=== PATIENT | male | born 1945 | race Caucasian/White ===

== ENCOUNTER 2020-02-07 21:29 | Emergency (ER) | payer OTHER, SELFPAY ==
[~2020-02-07] VITALS: Ht 167.6 cm; Wt 63.5 kg
--- NOTE | 2020-02-07 21:42 | NUR ---
PT DESTIYN BLS. TAKEN TO BED 2
[2020-02-07 21:55] VITALS: BP 106/62
--- NOTE | 2020-02-07 22:04 | NUR ---
ATTEMPTED TO CALL [facility] X 2. NO ANSWER.
--- NOTE | 2020-02-07 22:15 | NUR ---
74 Y/O MALE BIB ALS FROM [facility] FOR ALOC. A&O X2. PER DAUGHTER PT WAS BROUGHT INTO ER DUE TO COVID EXPOSURE FROM ROOMMATES AT [facility]. 0/10 PAIN. PT IS CONFUSED, THIS IS BASELINE S/P FALL 12/02/19. PT HAD SURGERY FOR INTERNAL HEAD BLEED, AND BRAIN SWELLING PER DAUGHTER. PER DAUGHTER PT HAS BEEN AT [facility] SINCE 01/19/20 AND TESTED FOR COVID, WITH A NEG RESULT 02/04/20. ON 02/02/20 DAUGHTER STATED PT IS ROOMED WITH COVID POSITIVE PTS. DENIES SOB, O2: 96% ON ROOM AIR, COUGH, NAUSEA, VOMITING, DIARRHEA, AFEBRILE. SIDE RAIL X2, BED IN LOW POSITION, WILL CONTINUE TO MONITOR. NKDA PMH: ENLARGED PROSTATE, HEN, DEPRESSION, INSOMNIA
--- NOTE | 2020-02-07 22:18 | NUR ---
5 CALL ATTEMPTS HAVE BEEN MADE TO SPEAK TO A NURSE REGARDING PT'S PMH, AND TO GET MORE INFORMATION, AND REASON FOR VISIT. Addendum: 02/07/20 at 2221 by [employer] THE FACILITIES PHONE RINGS, AND THEN THERE IS A BUSY SIGNAL.
--- NOTE | 2020-02-07 23:23 | NUR ---
Dr. Duarte examining patient.
[2020-02-07 23:50] LABS: BASOPHILS % (AUTO) 0.4 % (0.0-2.0); EOSINOPHILS % (AUTO) 0.7 % (0.0-4.0); HEMATOCRIT 35.8 % (36-52); HEMOGLOBIN 12.2 g/dL (12.0-18.0); LYMPHOCYTES % (AUTO) 22.7 % (20.5-51.1); MEAN CORPUSCULAR HEMOGLOBIN 33 pg (27-31); MEAN CORPUSCULAR HGB CONC 34 g/dL (33-37); MEAN CORPUSCULAR VOLUME 96.1 fL (80-94); MONOCYTES # (AUTO) 0.4 K/uL (0.8-1.0); MONOCYTES % (AUTO) 8.9 % (1.7-9.3); NEUTROPHILS % (AUTO) 67.3 % (42.2-75.2); PLATELET COUNT (AUTO) 226 K/uL (140-450); RED BLOOD CELL COUNT(AUTO) 3.73 MIL/uL (4.20-6.10); WHITE BLOOD COUNT (AUTO) 4.5 K/uL (4.8-10.8)
[2020-02-08 00:03] LABS: APPEARANCE,URINE HAZY (CLEAR); BILIRUBIN,URINE 1+ (NEGATIVE); BLOOD, URINE 2+ (NEGATIVE); COLOR,URINE DARK YELLOW (YELLOW); LEUKOCYTE ESTERASE ,URINE 2+ (NEGATIVE); NITRITE, URINE NEGATIVE (NEGATIVE); UGLUCOSE NEGATIVE (NEGATIVE)
[2020-02-08 00:10] LABS: ACETAMINOPHEN 4.3 ug/ml (10-30); ALBUMIN 3.4 g/dL (3.4-5.0); ANION GAP 15.6 (8-16); ASPARTATE AMINOTRANSFERASE 50 U/L (15-37); CARBON DIOXIDE 24.2 mmol/L (21-32); CHLORIDE 100 mmol/L (98-107); GLUCOSE 93 mg/dL (74-106); POTASSIUM 3.8 mmol/L (3.5-5.1); SODIUM SERUM 136 mmol/L (136-145); TOTAL BILIRUBIN 0.4 mg/dL (0.0-1.0); UREA NITROGEN, BLOOD 21 mg/dL (7-18)
[2020-02-08 00:13] LABS: BARBITURATE, URINE NEGATIVE ng/ml (NEG <=200); BENZODIAZEPINE, URINE POSITIVE ng/mL (NEG <=200); CANNABINOID, URINE NEGATIVE ng/mL (NEG <=50); COCAINE, URINE NEGATIVE ng/mL (NEG <=300); OPIATE, URINE NEGATIVE ng/mL (NEG <=2000); PHENCYCLIDINE SCREEN,URINE NEGATIVE ng/mL (NEG <=25)
--- NOTE | 2020-02-08 00:15 | NUR ---
EKG PERFORMED AT BEDSIDE
[2020-02-08 00:22] LABS: SALICYLATE < 2.8 mg/dL (2.8-20.0)
[2020-02-08 00:26] LABS: RBC,URINE 11-20 (MOD) /HPF (0-5); WBC,URINE 60-80 /HPF (0-5)
--- NOTE | 2020-02-08 00:32 | NUR ---
PT REQUESTING FOOD, SANCHEZ LEBLANC NOTIFIED, AND CLEARED PT FOR FOOD. MAINTENANCE TEAM LEADER CALLED, WILL BRING SANDWICH FOR PT.
--- NOTE | 2020-02-08 00:40 | NUR ---
PT LAYING IN BED EATING TUNA SANDWICH. SIDE RAIL X2, BED IN LOW POSITION WILL CONTINUE TO MONITOR.
[2020-02-08] MEDS ORDERED: KETOROLAC 15 MG/ML VIAL IVP ONE (01:55)
[2020-02-08] MEDS ORDERED: NACL 0.9% 500 ML IV ONE (01:55)
[2020-02-08] MEDS ORDERED: cefTRIAXone 2,000 MG in DEXTROSE 5% 100 ML IV ONE (01:55)
[2020-02-08] MEDS ORDERED: cefTRIAXone 2,000 MG VIAL ONE (01:57)
[2020-02-08] MEDS ORDERED: HALOPERIDOL IM 5 MG/ML VIAL IM ONE (03:30)
--- NOTE | 2020-02-08 03:42 | NUR ---
SPOKE WITH DAUGHTER, MARCIN, REGARDING RIDE HOME FOR PATIENT. MARCIN STATES "I DONT WANT TO GET HIM NOW BECAUSE I DONT EVEN WANT HIM GOING BACK TO THAT FACILITY." MARCIN STATES THAT SHE WANTS TO SPEAK WITH CASE MANAGEMENT AT [facility] AND WILL CALL US WITH AN UPDATE IN THE MORNING. INFORMED MARCIN WE WILL BE SETTING UP TRANSPORTATION TO [facility] VIA [facility] AND WILL BE WAITING FOR HER TO CALL US BACK.
--- NOTE | 2020-02-08 04:12 | NUR ---
PT REMAINS AGITATED AND ATTEMPTINGTO PULL LINES AND GET OUT OF BED. DR LEBLANC NOTIFIFED. EMMAR FOR [facility] RECEIVED.
[2020-02-08] MEDS ORDERED: LORazepam 2 MG/ML VIAL ONE ×2 (04:14→04:19)
[2020-02-08] MEDS ORDERED: LORazepam 2 MG/ML VIAL IVP ONE (04:45)
--- NOTE | 2020-02-08 05:48 | NUR ---
PT CURRENTLY SLEEPING, VSS, R/R EQUAL, AND UNLABORED. SIDE RAIL X2, BED IN LOW POSITION, WILL CONTINUE TO MONITOR.
--- NOTE | 2020-02-08 06:50 | NUR ---
PT SLEEPING IN BED. VSS, R/R EQUAL, AND UNLABORED. SIDE RAIL X2, BED IN LOW POSITION. WILL CONTINUE TO MONITOR.
--- NOTE | 2020-02-08 06:50 | NUR ---
SINCE PLACEMENT OF THE COUDE CATHETER NO URINE IS PRESENT IN THE URINARY DRAINAGE BAG. BLADDER SCAN SHOWS 136ML OF URINE PRESENT IN THE BLADDER. ULTRASOUND SHOW PROPER PLACEMENT OF THE BALLOON THE BLADDER. SANCHEZ LEBLANC MADE AWARE.
--- NOTE | 2020-02-08 07:15 | NUR ---
Pt report given to MARIELY LUKE. Transfer of care at this time.
--- NOTE | 2020-02-08 07:21 | NUR ---
PT SLEEPING AT THIS TIME. NO SIGNS OF DISTRESS. VS STABLE.
--- NOTE | 2020-02-08 08:13 | NUR ---
NEW APPROX ETA IS 11-12 TODAY
--- NOTE | 2020-02-08 09:14 | NUR ---
CALLED [facility] TO INFORM THAT PT WILL BE RETURNING TO FACILITY. THEY STATE THAT FAMILY DOES NOT WANT PT TO RETURN TO FACILITY. CALLED PTS FAMILY INFORMED THAT PT IS STABLE FOR DISCHARGE AND WILL BE RETURNING TO FACILITY AND THAT IF FAMILY WOULD LIKE TO SWITCH CARE FACILITIES, THEY WOULD NEED TO GO THROUGH [facility], NOT THE ER.
--- NOTE | 2020-02-08 09:58 | NUR ---
VS STABLE, PENDING DISCHARGE
[2020-02-08 10:20] VITALS: BP 114/69
--- NOTE | 2020-02-08 10:20 | NUR ---
Patient discharged with v/s stable. Written and verbal after care instructions given and explained REGARDIHNG FEVER AND UTI. Patient alert. All questions addressed prior to discharge. ID band removed. Rx of CEFPODOXIME PROXETIL given. FAMILY INFORMED THAT PT HAS COVID PENDING AND IF RESULT IS POSITIVE THEY WILL BE INFORMED WITH AP PHONE CALL [facility] PT BACK TO [facility]
--- NOTE | 2020-02-08 11:00 | NUR ---
RECIEVED CALL FROM YANICK SCHUSTER FROM [facility] FOR REPORT
--- NOTE | 2020-02-08 19:04 | NUR ---
RECEIVED REPORT OF POSITIVE COVID RESULT FROM LAB. FACE SHEET PLACED IN INFECTION CONTROL & INFECTION CONTROL TO F/U WITH PATIENT.
== END 2020-02-08 10:20 ==
LOC: EEVIPCON 21:29 → MED 21:29
DX: N30.00 Acute cystitis without hematuria (principal); E16.2 Hypoglycemia, unspecified; D72.819 Decreased white blood cell count, unspecified; F41.9 Anxiety disorder, unspecified; F03.90 Unspecified dementia, unspecified severity, without behavioral disturbance, psychotic disturbance, mood disturbance, and anxiety; R05 Cough; R50.81 Fever presenting with conditions classified elsewhere; R74.0 Nonspecific elevation of levels of transaminase and lactic acid dehydrogenase [LDH]; Z20.828 Contact with and (suspected) exposure to other viral communicable diseases; G47.00 Insomnia, unspecified; Z98.890 Other specified postprocedural states; Z86.79 Personal history of other diseases of the circulatory system
CPT/HCPCS: 36415; 70450; 71045; 80053; 80305; 81001; 82550; 84484; 85025; 87086; 87186; 93005; 96365; 96375; 99285; G0480; G0482; J0696; J1630; J1885; J2060; J7030; Q0092; U0003

== ENCOUNTER 2020-02-24 05:25 | Inpatient (IN) | payer OTHER, SELFPAY ==
[2020-02-24] VITALS (7 sets, daily range): BP systolic 89–132; BP diastolic 53–80
[~2020-02-24] VITALS: Ht 182.9 cm; Wt 81.6 kg
[2020-02-24] MEDS ORDERED: ROCURONIUM 50 MG/5 ML VIAL IV ONE (05:35)
[2020-02-24] MEDS ORDERED: SUCCINYLCHOLINE CHLORIDE 200 MG/10 ML VIAL IVP ONE (05:40)
[2020-02-24] MEDS ORDERED: INTUBATION KIT MC ONE (05:47)
[2020-02-24] MEDS: PROPOFOL 1000 MG/100 ML PREMIX 100 ML IV ONE ×2 (05:50→06:19)
[2020-02-24 06:29] LABS: HEMATOCRIT 32.7 % (36-52); HEMOGLOBIN 10.7 g/dL (12.0-18.0); MEAN CORPUSCULAR HEMOGLOBIN 31 pg (27-31); MEAN CORPUSCULAR HGB CONC 33 g/dL (33-37); MEAN CORPUSCULAR VOLUME 95.9 fL (80-94); PLATELET COUNT (AUTO) 242 K/uL (140-450); RED BLOOD CELL COUNT(AUTO) 3.41 MIL/uL (4.20-6.10); WHITE BLOOD COUNT (AUTO) 21.2 K/uL (4.8-10.8)
[2020-02-24] MEDS ORDERED: PANTOPRAZOLE 40 MG INJ VIAL IVP ONE (06:55)
[2020-02-24 07:00] LABS: ALBUMIN 1.9 g/dL (3.4-5.0); ANION GAP 15.6 (8-16); ASPARTATE AMINOTRANSFERASE 100 U/L (15-37); CARBON DIOXIDE 24.6 mmol/L (21-32); CHLORIDE 105 mmol/L (98-107); CREATININE 0.8 mg/dL (0.6-1.3); GLUCOSE 95 mg/dL (74-106); POTASSIUM 3.2 mmol/L (3.5-5.1); SODIUM SERUM 142 mmol/L (136-145); UREA NITROGEN, BLOOD 8 mg/dL (7-18)
[2020-02-24 07:05] LABS: LYMPHOCYTES % (MANUAL) 3 % (20-46); MONOCYTES % (MANUAL) 5 % (5-12)
[2020-02-24] MEDS ORDERED: NACL 0.9% 1,000 ML IV ONE (07:30)
[2020-02-24] MEDS ORDERED: AZITHROMYCIN 500 MG in DEXTROSE 5% 250 ML IV SCH ×2 (07:30→09:00)
[2020-02-24] MEDS ORDERED: AZITHROMYCIN 500 MG INJ VIAL IV ONE (07:35)
[2020-02-24 07:39] LABS: RSV NEGATIVE (NEGATIVE)
[2020-02-24] MEDS ORDERED: ZINC220C28 PO (08:12)
[2020-02-24] MEDS ORDERED: AMLO10TA PO (08:12)
[2020-02-24] MEDS ORDERED: VITB1I PO (08:12)
[2020-02-24] MEDS ORDERED: CLON-527 PO (08:12)
[2020-02-24] MEDS ORDERED: MODA200T39 PO (08:12)
[2020-02-24] MEDS ORDERED: FINA5TAB1 PO (08:12)
[2020-02-24] MEDS ORDERED: ASCO-516 PO (08:12)
[2020-02-24] MEDS ORDERED: MELA5SGL PO (08:12)
[2020-02-24] MEDS ORDERED: MULT-2171 PO (08:12)
[2020-02-24] MEDS ORDERED: CIPR500P4 PO (08:12)
[2020-02-24] MEDS ORDERED: NICO1PAT16 TP (08:12)
[2020-02-24] MEDS ORDERED: VITA1TAB44 PO (08:12)
[2020-02-24] MEDS ORDERED: VOL25 TD (08:12)
[2020-02-24] MEDS ORDERED: DOCU-299 PO (08:12)
[2020-02-24] MEDS ORDERED: ACET-2619 PO (08:12)
[2020-02-24] MEDS ORDERED: METO25TE2 PO (08:12)
[2020-02-24] MEDS ORDERED: CHOL400T7 PO (08:12)
[2020-02-24] MEDS ORDERED: [UNRECOGNIZED DRUG - CODE] PO (08:12)
[2020-02-24] MEDS ORDERED: ONDANSETRON 4 MG/2 ML VIAL IVP PRN (08:15)
[2020-02-24] MEDS ORDERED: IPRATROPIUM 0.02% 0.5 MG/2.5 ML NEBU INH PRN (08:15)
[2020-02-24] MEDS ORDERED: ALBUTEROL 0.083% 2.5 MG/3 ML NEBU INH PRN (08:15)
[2020-02-24] MEDS ORDERED: PIPERACILLIN/TAZOBACTAM 3.375 GM VIAL IV ONE (08:18)
[2020-02-24] MEDS ORDERED: MAG SULF 2000 MG/WATER PREMIX 50 ML IV PRN (08:30)
[2020-02-24] MEDS ORDERED: MAGNESIUM OXIDE 400 MG TAB PO PRN (08:30)
[2020-02-24] MEDS ORDERED: diphenhydrAMINE 50 MG/ML VIAL IVP PRN (08:30)
[2020-02-24] MEDS ORDERED: POTASSIUM CHLORIDE 10 MEQ TABER PO PRN (08:30)
[2020-02-24] MEDS ORDERED: MIDAZOLAM MDV 50 MG in NACL 0.9% 40 ML IV PRN (08:30)
[2020-02-24] MEDS ORDERED: fentaNYL citrate 1 MG in NACL 0.9% 80 ML IV PRN (08:30)
[2020-02-24 08:42] LABS: C-REACTIVE PROTEIN QUANT 23.2 mg/dL (0.0-0.9)
[2020-02-24 08:46] LABS: FIBRINOGEN 280 mg/dL (200-400)
[2020-02-24 08:47] LABS: LACTATE DEHYDROGENASE 592 U/L (85-227)
[2020-02-24] MEDS ORDERED: remdesivir COMMUNICATION ORDER 1 EA MISC MC SCH (09:00)
[2020-02-24] MEDS ORDERED: LOVENOX 1MG/KG Q12H SUBQ SCH (09:00)
[2020-02-24] MEDS: PIPERACILLIN/TAZOBACTAM 3.375 GM in DEXTROSE 5% 50 ML IV SCH ×2 (09:14→21:12)
[2020-02-24] MEDS: DEXAMETHASONE 10 MG/ML VIAL IVP SCH (09:21)
[2020-02-24] MEDS: ENOXAPARIN 80 MG/0.8 ML SYR SUBQ SCH ×2 (09:24→21:12)
[2020-02-24] MEDS ORDERED: CLINICAL MONITORING MC PRN (10:05)
[2020-02-24] MEDS ORDERED: PROPOFOL 1000 MG/100 ML PREMIX 100 ML IV ONE (11:20)
[2020-02-24] MEDS: ALBUTEROL 0.083% 2.5 MG/3 ML NEBU INH SCH ×3 (11:45→19:20)
[2020-02-24] MEDS ORDERED: remdesivir 200 mg in NACL 0.9% 100 ML IV SCH (12:00)
[2020-02-24] MEDS ORDERED: DOPamine 400 MG/D5W PREMIX 250 ML IV PRN (14:05)
[2020-02-24] MEDS ORDERED: POTASSIUM CHLORIDE 20% 40 MEQ/15 ML UDC GT SCH (15:00)
[2020-02-24] MEDS ORDERED: MIDAZOLAM MDV 50 MG/10 ML VIAL IV ONE (23:40)
[2020-02-25] VITALS (9 sets, daily range): BP systolic 98–127; BP diastolic 62–83
[2020-02-25] MEDS: PIPERACILLIN/TAZOBACTAM 3.375 GM in DEXTROSE 5% 50 ML IV SCH ×3 (04:18→21:16)
[2020-02-25] MEDS: ACETAMINOPHEN 325 MG TAB PO PRN (06:41)
[2020-02-25] MEDS: ENOXAPARIN 80 MG/0.8 ML SYR SUBQ SCH ×2 (09:00→21:24)
[2020-02-25] MEDS ORDERED: cefTRIAXone 1,000 MG VIAL ONE (09:00)
[2020-02-25] MEDS: AZITHROMYCIN 500 MG in DEXTROSE 5% 250 ML IV SCH (09:00)
[2020-02-25] MEDS: ALBUTEROL 0.083% 2.5 MG/3 ML NEBU INH SCH ×5 (09:05→23:24)
[2020-02-25] MEDS: DEXAMETHASONE 10 MG/ML VIAL IVP SCH (09:34)
[2020-02-25 10:04] LABS: BASOPHILS % (AUTO) 0.1 % (0.0-2.0); EOSINOPHILS # (AUTO) 0.1 K/uL (0-0.4); EOSINOPHILS % (AUTO) 0.3 % (0.0-4.0); HEMATOCRIT 30.9 % (36-52); HEMOGLOBIN 9.9 g/dL (12.0-18.0); LYMPHOCYTES # (AUTO) 0.5 K/uL (2.0-11.5); LYMPHOCYTES % (AUTO) 2.7 % (20.5-51.1); MEAN CORPUSCULAR HEMOGLOBIN 31 pg (27-31); MEAN CORPUSCULAR HGB CONC 32 g/dL (33-37); MEAN CORPUSCULAR VOLUME 97.9 fL (80-94); MONOCYTES # (AUTO) 0.8 K/uL (0.8-1.0); MONOCYTES % (AUTO) 3.9 % (1.7-9.3); NEUTROPHILS # (AUTO) 18.8 K/uL (1.8-7.7); PLATELET COUNT (AUTO) 230 K/uL (140-450); RED BLOOD CELL COUNT(AUTO) 3.15 MIL/uL (4.20-6.10); RED CELL DISTRIBUTION WIDTH 14.8 % (11.6-13.7); WHITE BLOOD COUNT (AUTO) 20.2 K/uL (4.8-10.8)
[2020-02-25 10:24] LABS: ALBUMIN 1.5 g/dL (3.4-5.0); ANION GAP 13.3 (8-16); ASPARTATE AMINOTRANSFERASE 38 U/L (15-37); CARBON DIOXIDE 26.9 mmol/L (21-32); CHLORIDE 112 mmol/L (98-107); CREATININE 0.7 mg/dL (0.6-1.3); GLUCOSE 116 mg/dL (74-106); POTASSIUM 3.2 mmol/L (3.5-5.1); SODIUM SERUM 149 mmol/L (136-145); TOTAL BILIRUBIN 0.6 mg/dL (0.0-1.0); UREA NITROGEN, BLOOD 15 mg/dL (7-18)
[2020-02-25] MEDS: fentaNYL citrate - 50mL vial 2.5 MG in NACL 0.9% 200 ML IV PRN (10:58)
[2020-02-25] MEDS: MIDAZOLAM MDV 100 MG in NACL 0.9% 80 ML IV PRN (11:50)
[2020-02-25] MEDS ORDERED: DEXAMETHASONE 4 MG/ML VIAL IVP SCH (12:10)
[2020-02-25] MEDS: remdesivir 100 mg in NACL 0.9% 100 ML IV SCH (13:14)
[2020-02-25] MEDS ORDERED: POTASSIUM CHLORIDE 20% 40 MEQ/15 ML UDC GT SCH (16:15)
[2020-02-25] MEDS ORDERED: ACETAMINOPHEN 325 MG SUPP RC ONE (17:23)
[2020-02-25] MEDS ORDERED: remdesivir COMMUNICATION ORDER 1 EA MISC MC PRN (19:50)
[2020-02-26] VITALS (101 sets, daily range): BP systolic 80–165; BP diastolic 51–102
[2020-02-26] MEDS: ALBUTEROL 0.083% 2.5 MG/3 ML NEBU INH SCH ×3 (02:04→23:00)
[2020-02-26] MEDS: PIPERACILLIN/TAZOBACTAM 3.375 GM in DEXTROSE 5% 50 ML IV SCH ×2 (05:24→13:00)
[2020-02-26 08:20] LABS: ALBUMIN 1.5 g/dL (3.4-5.0); ANION GAP 13.6 (8-16); ASPARTATE AMINOTRANSFERASE 67 U/L (15-37); CARBON DIOXIDE 26.6 mmol/L (21-32); CHLORIDE 115 mmol/L (98-107); CREATININE 0.7 mg/dL (0.6-1.3); GLUCOSE 123 mg/dL (74-106); POTASSIUM 4.2 mmol/L (3.5-5.1); SODIUM SERUM 151 mmol/L (136-145); TOTAL BILIRUBIN 0.5 mg/dL (0.0-1.0); UREA NITROGEN, BLOOD 18 mg/dL (7-18)
[2020-02-26 08:35] LABS: BASOPHILS % (AUTO) 0.2 % (0.0-2.0); EOSINOPHILS # (AUTO) 0.1 K/uL (0-0.4); EOSINOPHILS % (AUTO) 0.2 % (0.0-4.0); HEMATOCRIT 32.1 % (36-52); HEMOGLOBIN 10.4 g/dL (12.0-18.0); LYMPHOCYTES # (AUTO) 0.7 K/uL (2.0-11.5); MEAN CORPUSCULAR HEMOGLOBIN 32 pg (27-31); MEAN CORPUSCULAR HGB CONC 33 g/dL (33-37); MONOCYTES # (AUTO) 0.7 K/uL (0.8-1.0); MONOCYTES % (AUTO) 2.7 % (1.7-9.3); NEUTROPHILS # (AUTO) 23.4 K/uL (1.8-7.7); NEUTROPHILS % (AUTO) 93.9 % (42.2-75.2); PLATELET COUNT (AUTO) 267 K/uL (140-450); RED BLOOD CELL COUNT(AUTO) 3.31 MIL/uL (4.20-6.10); WHITE BLOOD COUNT (AUTO) 24.9 K/uL (4.8-10.8)
[2020-02-26] MEDS ORDERED: CRUSHER, PILL MC ONE (08:38)
[2020-02-26] MEDS: ENOXAPARIN 80 MG/0.8 ML SYR SUBQ SCH ×2 (09:00→20:32)
[2020-02-26] MEDS: DEXAMETHASONE 10 MG/ML VIAL IVP SCH (09:06)
[2020-02-26] MEDS: ACETAMINOPHEN 325 MG TAB PO PRN (09:06)
[2020-02-26] MEDS: AZITHROMYCIN 500 MG in DEXTROSE 5% 250 ML IV SCH (09:56)
[2020-02-26] MEDS ORDERED: CLINICAL MONITORING MC PRN (10:00)
[2020-02-26] MEDS ORDERED: remdesivir 200 mg in NACL 0.9% 100 ML IV SCH (10:00)
[2020-02-26] MEDS: remdesivir 100 mg in NACL 0.9% 100 ML IV SCH (12:30)
[2020-02-26] MEDS: MIDODRINE 5 MG TAB PO SCH ×2 (12:31→19:50)
[2020-02-26] MEDS: MIDAZOLAM MDV 100 MG in NACL 0.9% 80 ML IV PRN (13:45)
[2020-02-26] MEDS: ALBUMIN HUMAN 25% 100 ML IV SCH (20:39)
[2020-02-26] MEDS: fentaNYL citrate - 50mL vial 2.5 MG in NACL 0.9% 200 ML IV PRN (20:50)
[2020-02-27] VITALS (107 sets, daily range): BP systolic 90–157; BP diastolic 51–94
[2020-02-27] MEDS: MIDODRINE 5 MG TAB PO SCH ×4 (00:36→17:58)
[2020-02-27] MEDS: ALBUTEROL 0.083% 2.5 MG/3 ML NEBU INH SCH ×5 (03:00→20:35)
[2020-02-27 06:34] LABS: BASOPHILS % (AUTO) 0.1 % (0.0-2.0); HEMATOCRIT 29.6 % (36-52); HEMOGLOBIN 9.4 g/dL (12.0-18.0); LYMPHOCYTES # (AUTO) 0.6 K/uL (2.0-11.5); LYMPHOCYTES % (AUTO) 2.7 % (20.5-51.1); MEAN CORPUSCULAR HEMOGLOBIN 31 pg (27-31); MEAN CORPUSCULAR HGB CONC 32 g/dL (33-37); MEAN CORPUSCULAR VOLUME 98.9 fL (80-94); MONOCYTES # (AUTO) 0.5 K/uL (0.8-1.0); MONOCYTES % (AUTO) 2.2 % (1.7-9.3); NEUTROPHILS # (AUTO) 21.5 K/uL (1.8-7.7); PLATELET COUNT (AUTO) 216 K/uL (140-450); RED BLOOD CELL COUNT(AUTO) 2.99 MIL/uL (4.20-6.10); RED CELL DISTRIBUTION WIDTH 15.3 % (11.6-13.7); WHITE BLOOD COUNT (AUTO) 22.6 K/uL (4.8-10.8)
[2020-02-27 06:45] LABS: ALBUMIN 1.8 g/dL (3.4-5.0); ANION GAP 13.9 (8-16); ASPARTATE AMINOTRANSFERASE 31 U/L (15-37); CARBON DIOXIDE 29.5 mmol/L (21-32); CHLORIDE 114 mmol/L (98-107); CREATININE 0.6 mg/dL (0.6-1.3); GLUCOSE 107 mg/dL (74-106); POTASSIUM 4.4 mmol/L (3.5-5.1); SODIUM SERUM 153 mmol/L (136-145); TOTAL BILIRUBIN 0.5 mg/dL (0.0-1.0); UREA NITROGEN, BLOOD 22 mg/dL (7-18)
[2020-02-27] MEDS: ENOXAPARIN 80 MG/0.8 ML SYR SUBQ SCH ×2 (09:00→21:05)
[2020-02-27] MEDS: ALBUMIN HUMAN 25% 100 ML IV SCH ×2 (09:00→21:05)
[2020-02-27] MEDS: DEXAMETHASONE 10 MG/ML VIAL IVP SCH (09:00)
[2020-02-27] MEDS ORDERED: remdesivir 100 mg in NACL 0.9% 100 ML IV SCH (10:00)
[2020-02-27] MEDS: remdesivir 100 mg in NACL 0.9% 100 ML IV SCH (12:00)
[2020-02-27] MEDS: fentaNYL citrate - 50mL vial 2.5 MG in NACL 0.9% 200 ML IV PRN (17:50)
[2020-02-27] MEDS: MIDAZOLAM MDV 50 MG in NACL 0.9% 40 ML IV PRN (17:53)
[2020-02-27] MEDS: ACETAMINOPHEN 325 MG TAB PO PRN ×2 (18:05→22:10)
[2020-02-28] VITALS (107 sets, daily range): BP systolic 99–164; BP diastolic 60–103
[2020-02-28] MEDS: ALBUTEROL 0.083% 2.5 MG/3 ML NEBU INH SCH ×7 (00:03→23:17)
[2020-02-28] MEDS: MIDODRINE 5 MG TAB PO SCH ×4 (00:28→18:00)
[2020-02-28] MEDS: ACETAMINOPHEN 325 MG TAB PO PRN ×2 (02:12→10:44)
[2020-02-28 05:38] LABS: BASOPHILS % (AUTO) 0.2 % (0.0-2.0); EOSINOPHILS # (AUTO) 0.1 K/uL (0-0.4); EOSINOPHILS % (AUTO) 0.8 % (0.0-4.0); HEMATOCRIT 28.8 % (36-52); LYMPHOCYTES # (AUTO) 0.7 K/uL (2.0-11.5); MEAN CORPUSCULAR HEMOGLOBIN 31 pg (27-31); MEAN CORPUSCULAR HGB CONC 31 g/dL (33-37); MEAN CORPUSCULAR VOLUME 99.1 fL (80-94); MONOCYTES # (AUTO) 0.3 K/uL (0.8-1.0); MONOCYTES % (AUTO) 1.8 % (1.7-9.3); NEUTROPHILS # (AUTO) 15.6 K/uL (1.8-7.7); NEUTROPHILS % (AUTO) 93.2 % (42.2-75.2); PLATELET COUNT (AUTO) 158 K/uL (140-450); RED CELL DISTRIBUTION WIDTH 15.4 % (11.6-13.7); WHITE BLOOD COUNT (AUTO) 16.7 K/uL (4.8-10.8)
[2020-02-28 06:49] LABS: ALBUMIN 2.3 g/dL (3.4-5.0); ANION GAP 6.9 (8-16); ASPARTATE AMINOTRANSFERASE 55 U/L (15-37); CARBON DIOXIDE 35.2 mmol/L (21-32); CHLORIDE 118 mmol/L (98-107); CREATININE 0.7 mg/dL (0.6-1.3); GLUCOSE 131 mg/dL (74-106); POTASSIUM 4.1 mmol/L (3.5-5.1); UREA NITROGEN, BLOOD 19 mg/dL (7-18)
[2020-02-28 08:18] LABS: SODIUM SERUM 156 mmol/L (136-145)
[2020-02-28] MEDS: DEXAMETHASONE 10 MG/ML VIAL IVP SCH (08:45)
[2020-02-28] MEDS: ENOXAPARIN 80 MG/0.8 ML SYR SUBQ SCH ×2 (08:47→21:10)
[2020-02-28] MEDS: ALBUMIN HUMAN 25% 100 ML IV SCH ×2 (09:00→21:10)
[2020-02-28] MEDS: remdesivir 100 mg in NACL 0.9% 100 ML IV SCH (11:54)
[2020-02-28] MEDS ORDERED: MAGNESIUM HYDROXIDE 2400 MG/30 ML UDC NG PRN (12:25)
[2020-02-28] MEDS: MIDAZOLAM MDV 50 MG in NACL 0.9% 40 ML IV PRN (14:30)
[2020-02-28] MEDS: fentaNYL citrate - 50mL vial 2.5 MG in NACL 0.9% 200 ML IV PRN (14:59)
[2020-02-29] VITALS (103 sets, daily range): BP systolic 102–178; BP diastolic 59–120
[2020-02-29] MEDS: MORPHINE SULFATE 2 MG/ML SYR IVP PRN (00:35)
[2020-02-29] MEDS ORDERED: MIDAZOLAM MDV 50 MG/10 ML VIAL IV ONE (05:06)
[2020-02-29] MEDS: MIDAZOLAM MDV 50 MG in NACL 0.9% 40 ML IV PRN ×2 (05:11→16:16)
[2020-02-29] MEDS: MIDODRINE 5 MG TAB PO SCH ×4 (05:12→18:39)
[2020-02-29 06:24] LABS: HEMATOCRIT 31.6 % (36-52); MEAN CORPUSCULAR HEMOGLOBIN 31 pg (27-31); MEAN CORPUSCULAR HGB CONC 32 g/dL (33-37); MEAN CORPUSCULAR VOLUME 98.2 fL (80-94); PLATELET COUNT (AUTO) 177 K/uL (140-450); RED BLOOD CELL COUNT(AUTO) 3.22 MIL/uL (4.20-6.10); RED CELL DISTRIBUTION WIDTH 15.2 % (11.6-13.7); WHITE BLOOD COUNT (AUTO) 19.3 K/uL (4.8-10.8)
[2020-02-29 06:56] LABS: ANION GAP 9.6 (8-16); ASPARTATE AMINOTRANSFERASE 38 U/L (15-37); CARBON DIOXIDE 34.1 mmol/L (21-32); CHLORIDE 117 mmol/L (98-107); CREATININE 0.6 mg/dL (0.6-1.3); GLUCOSE 170 mg/dL (74-106); POTASSIUM 3.7 mmol/L (3.5-5.1); TOTAL BILIRUBIN 0.8 mg/dL (0.0-1.0); UREA NITROGEN, BLOOD 23 mg/dL (7-18)
[2020-02-29 07:22] LABS: SODIUM SERUM 157 mmol/L (136-145)
[2020-02-29] MEDS: ALBUTEROL 0.083% 2.5 MG/3 ML NEBU INH SCH ×5 (07:35→23:29)
[2020-02-29] MEDS: NACL 0.45% 1,000 ML IV SCH ×2 (08:38→20:55)
[2020-02-29] MEDS: DEXAMETHASONE 10 MG/ML VIAL IVP SCH (09:39)
[2020-02-29] MEDS: ALBUMIN HUMAN 25% 100 ML IV SCH (09:39)
[2020-02-29] MEDS: ENOXAPARIN 80 MG/0.8 ML SYR SUBQ SCH ×2 (09:40→20:32)
[2020-02-29 10:44] LABS: LYMPHOCYTES % (MANUAL) 4 % (20-46)
[2020-02-29 10:45] LABS: BASOPHILS % (MANUAL) 0 % (0-2); EOSINOPHILS % (MANUAL) 0 % (0-4); MONOCYTES % (MANUAL) 2 % (5-12)
[2020-02-29] MEDS: fentaNYL citrate - 50mL vial 2.5 MG in NACL 0.9% 200 ML IV PRN (10:47)
[2020-02-29 15:14] LABS: D-DIMER > 5000 ng/ml (0-400)
[2020-02-29] MEDS: ACETAMINOPHEN 325 MG TAB PO PRN (21:52)
[2020-03-01] VITALS (102 sets, daily range): BP systolic 111–191; BP diastolic 64–119
[2020-03-01] MEDS: MIDODRINE 5 MG TAB PO SCH ×4 (00:42→18:00)
[2020-03-01] MEDS ORDERED: MIDAZOLAM MDV 50 MG/10 ML VIAL IV ONE (03:05)
[2020-03-01] MEDS: MIDAZOLAM MDV 50 MG in NACL 0.9% 40 ML IV PRN ×3 (03:17→18:57)
[2020-03-01] MEDS: ALBUTEROL 0.083% 2.5 MG/3 ML NEBU INH SCH ×6 (03:18→22:41)
[2020-03-01 06:20] LABS: BASOPHILS % (AUTO) 0.2 % (0.0-2.0); HEMATOCRIT 27.5 % (36-52); HEMOGLOBIN 8.8 g/dL (12.0-18.0); LYMPHOCYTES # (AUTO) 0.5 K/uL (2.0-11.5); LYMPHOCYTES % (AUTO) 3.6 % (20.5-51.1); MEAN CORPUSCULAR HEMOGLOBIN 31 pg (27-31); MEAN CORPUSCULAR HGB CONC 32 g/dL (33-37); MEAN CORPUSCULAR VOLUME 98.4 fL (80-94); MONOCYTES # (AUTO) 0.4 K/uL (0.8-1.0); MONOCYTES % (AUTO) 2.7 % (1.7-9.3); NEUTROPHILS # (AUTO) 12.9 K/uL (1.8-7.7); NEUTROPHILS % (AUTO) 93.5 % (42.2-75.2); PLATELET COUNT (AUTO) 137 K/uL (140-450); RED BLOOD CELL COUNT(AUTO) 2.79 MIL/uL (4.20-6.10); RED CELL DISTRIBUTION WIDTH 15.2 % (11.6-13.7); WHITE BLOOD COUNT (AUTO) 13.8 K/uL (4.8-10.8)
[2020-03-01] MEDS: ENOXAPARIN 80 MG/0.8 ML SYR SUBQ SCH ×2 (08:13→21:07)
[2020-03-01] MEDS: DEXAMETHASONE 10 MG/ML VIAL IVP SCH (08:13)
[2020-03-01] MEDS: fentaNYL citrate - 50mL vial 2.5 MG in NACL 0.9% 200 ML IV PRN (08:20)
[2020-03-01] MEDS: NACL 0.45% 1,000 ML IV SCH ×2 (08:26→20:36)
[2020-03-01 08:38] LABS: ANION GAP 10.7 (8-16); CARBON DIOXIDE 33.5 mmol/L (21-32); CHLORIDE 115 mmol/L (98-107); CREATININE 0.6 mg/dL (0.6-1.3); GLUCOSE 152 mg/dL (74-106); POTASSIUM 4.2 mmol/L (3.5-5.1); SODIUM SERUM 155 mmol/L (136-145); UREA NITROGEN, BLOOD 25 mg/dL (7-18)
[2020-03-02] VITALS (101 sets, daily range): BP systolic 104–179; BP diastolic 60–102
[2020-03-02] MEDS: MIDODRINE 5 MG TAB PO SCH ×6 (00:52→17:19)
[2020-03-02] MEDS: fentaNYL citrate - 50mL vial 2.5 MG in NACL 0.9% 200 ML IV PRN ×2 (01:29→15:27)
[2020-03-02] MEDS: ALBUTEROL 0.083% 2.5 MG/3 ML NEBU INH SCH ×6 (02:36→23:00)
[2020-03-02] MEDS: MORPHINE SULFATE 2 MG/ML SYR IVP PRN ×2 (03:30→11:59)
[2020-03-02] MEDS: MIDAZOLAM MDV 50 MG in NACL 0.9% 40 ML IV PRN ×2 (07:25→15:22)
[2020-03-02] MEDS: DEXAMETHASONE 10 MG/ML VIAL IVP SCH (09:28)
[2020-03-02] MEDS: ENOXAPARIN 80 MG/0.8 ML SYR SUBQ SCH ×2 (09:29→20:25)
[2020-03-02] MEDS: NACL 0.45% 1,000 ML IV SCH ×2 (10:34→22:55)
[2020-03-02] MEDS: ACETAMINOPHEN 325 MG TAB PO PRN (11:59)
[2020-03-03] VITALS (101 sets, daily range): BP systolic 95–189; BP diastolic 54–111
[2020-03-03] MEDS: MIDAZOLAM MDV 50 MG in NACL 0.9% 40 ML IV PRN ×2 (02:39→22:45)
[2020-03-03] MEDS: ALBUTEROL 0.083% 2.5 MG/3 ML NEBU INH SCH ×6 (03:33→23:00)
[2020-03-03] MEDS: MIDODRINE 5 MG TAB PO SCH ×2 (06:00)
[2020-03-03] MEDS: fentaNYL citrate - 50mL vial 2.5 MG in NACL 0.9% 200 ML IV PRN (06:45)
[2020-03-03 06:48] LABS: ALBUMIN 0.7 g/dL (3.4-5.0); ANION GAP 13.1 (8-16); ASPARTATE AMINOTRANSFERASE 60 U/L (15-37); CARBON DIOXIDE 13.8 mmol/L (21-32); CHLORIDE 93 mmol/L (98-107); CREATININE 0.2 mg/dL (0.6-1.3); GLUCOSE 54 mg/dL (74-106); TOTAL BILIRUBIN 0.2 mg/dL (0.0-1.0); UREA NITROGEN, BLOOD 7 mg/dL (7-18)
[2020-03-03 06:53] LABS: POTASSIUM 1.9 mmol/L (3.5-5.1); SODIUM SERUM 118 mmol/L (136-145)
[2020-03-03 08:11] LABS: ALBUMIN 2.1 g/dL (3.4-5.0); ANION GAP 13.3 (8-16); ASPARTATE AMINOTRANSFERASE 133 U/L (15-37); CARBON DIOXIDE 30.2 mmol/L (21-32); CHLORIDE 105 mmol/L (98-107); CREATININE 0.6 mg/dL (0.6-1.3); GLUCOSE 111 mg/dL (74-106); POTASSIUM 4.5 mmol/L (3.5-5.1); TOTAL BILIRUBIN 0.6 mg/dL (0.0-1.0); UREA NITROGEN, BLOOD 17 mg/dL (7-18)
[2020-03-03 08:14] LABS: SODIUM SERUM 144 mmol/L (136-145)
[2020-03-03] MEDS: ENOXAPARIN 80 MG/0.8 ML SYR SUBQ SCH ×2 (09:14→21:10)
[2020-03-03] MEDS: ACETAMINOPHEN 325 MG TAB PO PRN ×2 (09:19→20:47)
[2020-03-03] MEDS: DEXAMETHASONE 10 MG/ML VIAL IVP SCH (09:19)
[2020-03-03 10:22] LABS: HEMATOCRIT 26.5 % (36-52); HEMOGLOBIN 8.4 g/dL (12.0-18.0); MEAN CORPUSCULAR HEMOGLOBIN 31 pg (27-31); MEAN CORPUSCULAR HGB CONC 32 g/dL (33-37); MEAN CORPUSCULAR VOLUME 99.1 fL (80-94); PLATELET COUNT (AUTO) 99 K/uL (140-450); RED BLOOD CELL COUNT(AUTO) 2.67 MIL/uL (4.20-6.10); RED CELL DISTRIBUTION WIDTH 15.4 % (11.6-13.7); WHITE BLOOD COUNT (AUTO) 15.6 K/uL (4.8-10.8)
[2020-03-03 11:12] LABS: LYMPHOCYTES % (MANUAL) 10 % (20-46); MONOCYTES % (MANUAL) 3 % (5-12)
[2020-03-03] MEDS: NACL 0.45% 1,000 ML IV SCH (11:26)
[2020-03-03] MEDS ORDERED: fentaNYL citrate 0.05 MG/ML VIAL ONE (22:25)
[2020-03-03] MEDS: fentaNYL citrate 1 MG in NACL 0.9% 80 ML IV PRN (22:48)
[2020-03-04] VITALS (105 sets, daily range): BP systolic 81–187; BP diastolic 51–99
[2020-03-04] MEDS ORDERED: fentaNYL citrate 0.05 MG/ML VIAL ONE ×2 (03:52→03:54)
[2020-03-04] MEDS ORDERED: MIDAZOLAM MDV 50 MG/10 ML VIAL IV ONE (03:56)
[2020-03-04] MEDS: NACL 0.45% 1,000 ML IV SCH ×2 (04:30→20:26)
[2020-03-04] MEDS: fentaNYL citrate 1 MG in NACL 0.9% 80 ML IV PRN ×2 (04:32→10:38)
[2020-03-04] MEDS: ACETAMINOPHEN 325 MG TAB PO PRN ×3 (04:55→23:21)
[2020-03-04 05:53] LABS: HEMATOCRIT 25.2 % (36-52); HEMOGLOBIN 8.2 g/dL (12.0-18.0); MEAN CORPUSCULAR HEMOGLOBIN 31 pg (27-31); MEAN CORPUSCULAR HGB CONC 32 g/dL (33-37); MEAN CORPUSCULAR VOLUME 95.7 fL (80-94); PLATELET COUNT (AUTO) 135 K/uL (140-450); RED BLOOD CELL COUNT(AUTO) 2.64 MIL/uL (4.20-6.10); RED CELL DISTRIBUTION WIDTH 14.7 % (11.6-13.7); WHITE BLOOD COUNT (AUTO) 11.7 K/uL (4.8-10.8)
[2020-03-04] MEDS: MIDAZOLAM MDV 50 MG in NACL 0.9% 40 ML IV PRN ×2 (06:32→13:53)
[2020-03-04 06:40] LABS: ALBUMIN 2.1 g/dL (3.4-5.0); ASPARTATE AMINOTRANSFERASE 87 U/L (15-37); CREATININE 0.5 mg/dL (0.6-1.3); GLUCOSE 99 mg/dL (74-106); TOTAL BILIRUBIN 0.7 mg/dL (0.0-1.0); UREA NITROGEN, BLOOD 14 mg/dL (7-18)
[2020-03-04 06:45] LABS: ANION GAP 8.1 (8-16); CARBON DIOXIDE 33.1 mmol/L (21-32); CHLORIDE 102 mmol/L (98-107); POTASSIUM 4.2 mmol/L (3.5-5.1); SODIUM SERUM 139 mmol/L (136-145)
[2020-03-04 07:08] LABS: BASOPHILS % (MANUAL) 0 % (0-2); EOSINOPHILS % (MANUAL) 0 % (0-4); LYMPHOCYTES % (MANUAL) 5 % (20-46); MONOCYTES % (MANUAL) 2 % (5-12)
[2020-03-04] MEDS: ALBUTEROL 0.083% 2.5 MG/3 ML NEBU INH SCH ×5 (07:36→19:56)
[2020-03-04] MEDS: ENOXAPARIN 80 MG/0.8 ML SYR SUBQ SCH ×3 (09:00→21:00)
[2020-03-04] MEDS: DEXAMETHASONE 10 MG/ML VIAL IVP SCH (09:35)
[2020-03-04] MEDS ORDERED: LORazepam 2 MG/ML VIAL IVP PRN (12:10)
[2020-03-04] MEDS ORDERED: PANTOPRAZOLE 40 MG INJ VIAL IVP SCH (13:10)
[2020-03-04] MEDS ORDERED: VANCOMYCIN PER PHARMACY MC PRN (16:30)
[2020-03-04] MEDS: fentaNYL citrate - 50mL vial 2.5 MG in NACL 0.9% 200 ML IV PRN (17:48)
[2020-03-04] MEDS ORDERED: VANCOMYCIN 1,500 MG in DEXTROSE 5% 500 ML IV ONE (20:00)
[2020-03-04] MEDS ORDERED: CEFEPIME 1,000 MG VIAL ONE (20:07)
[2020-03-04] MEDS ORDERED: VANCOMYCIN 1,000 MG VIAL ONE ×2 (20:08→20:13)
[2020-03-04] MEDS: CEFEPIME 1,000 MG in DEXTROSE 5% 50 ML IV SCH (20:26)
[2020-03-05] VITALS (102 sets, daily range): BP systolic 74–149; BP diastolic 44–81
[2020-03-05] MEDS: MIDAZOLAM MDV 50 MG in NACL 0.9% 40 ML IV PRN (00:25)
[2020-03-05] MEDS: ALBUTEROL 0.083% 2.5 MG/3 ML NEBU INH SCH ×5 (03:00→20:57)
[2020-03-05 06:24] LABS: HEMATOCRIT 24.1 % (36-52); HEMOGLOBIN 7.8 g/dL (12.0-18.0); MEAN CORPUSCULAR HEMOGLOBIN 31 pg (27-31); MEAN CORPUSCULAR HGB CONC 33 g/dL (33-37); MEAN CORPUSCULAR VOLUME 95.8 fL (80-94); PLATELET COUNT (AUTO) 174 K/uL (140-450); RED BLOOD CELL COUNT(AUTO) 2.52 MIL/uL (4.20-6.10); RED CELL DISTRIBUTION WIDTH 15.3 % (11.6-13.7); WHITE BLOOD COUNT (AUTO) 18.4 K/uL (4.8-10.8)
[2020-03-05 06:50] LABS: LYMPHOCYTES % (MANUAL) 3 % (20-46); MONOCYTES % (MANUAL) 2 % (5-12)
[2020-03-05 06:51] LABS: ALBUMIN 1.8 g/dL (3.4-5.0); ANION GAP 8.5 (8-16); ASPARTATE AMINOTRANSFERASE 41 U/L (15-37); CARBON DIOXIDE 32.5 mmol/L (21-32); CHLORIDE 102 mmol/L (98-107); CREATININE 0.6 mg/dL (0.6-1.3); GLUCOSE 141 mg/dL (74-106); SODIUM SERUM 139 mmol/L (136-145); TOTAL BILIRUBIN 0.5 mg/dL (0.0-1.0); UREA NITROGEN, BLOOD 15 mg/dL (7-18)
[2020-03-05] MEDS: CEFEPIME 1,000 MG in DEXTROSE 5% 50 ML IV SCH ×2 (08:05→19:57)
[2020-03-05] MEDS: PANTOPRAZOLE 40 MG INJ VIAL IVP SCH (09:25)
[2020-03-05] MEDS: VANCOMYCIN 1,000 MG in DEXTROSE 5% 250 ML IV SCH ×2 (09:25→17:02)
[2020-03-05] MEDS: DEXAMETHASONE 10 MG/ML VIAL IVP SCH (09:25)
[2020-03-05] MEDS: ENOXAPARIN 80 MG/0.8 ML SYR SUBQ SCH ×2 (09:27→20:54)
[2020-03-05] MEDS: fentaNYL citrate - 50mL vial 2.5 MG in NACL 0.9% 200 ML IV PRN (09:48)
[2020-03-05] MEDS: MIDAZOLAM MDV 100 MG in NACL 0.9% 80 ML IV PRN (13:10)
[2020-03-05] MEDS: FOAM DRESSING TP SCH (13:10)
[2020-03-05] MEDS: Z-GUARD PASTE TP SCH (13:10)
[2020-03-05] MEDS: NACL 0.45% 1,000 ML IV SCH (16:41)
[2020-03-06] VITALS (106 sets, daily range): BP systolic 84–175; BP diastolic 52–92
[2020-03-06] MEDS: ALBUTEROL 0.083% 2.5 MG/3 ML NEBU INH SCH ×6 (01:07→23:22)
[2020-03-06] MEDS: VANCOMYCIN 1,000 MG in DEXTROSE 5% 250 ML IV SCH ×2 (01:50→09:46)
[2020-03-06] MEDS: FOAM DRESSING TP SCH ×2 (01:55→13:00)
[2020-03-06] MEDS: Z-GUARD PASTE TP SCH ×2 (01:55→13:00)
[2020-03-06] MEDS: fentaNYL citrate - 50mL vial 2.5 MG in NACL 0.9% 200 ML IV PRN ×2 (02:03→20:52)
[2020-03-06 06:06] LABS: BASOPHILS % (AUTO) 0.1 % (0.0-2.0); HEMATOCRIT 23.5 % (36-52); HEMOGLOBIN 7.5 g/dL (12.0-18.0); LYMPHOCYTES # (AUTO) 0.5 K/uL (2.0-11.5); LYMPHOCYTES % (AUTO) 2.1 % (20.5-51.1); MEAN CORPUSCULAR HEMOGLOBIN 31 pg (27-31); MEAN CORPUSCULAR HGB CONC 32 g/dL (33-37); MEAN CORPUSCULAR VOLUME 96.5 fL (80-94); MONOCYTES # (AUTO) 0.7 K/uL (0.8-1.0); MONOCYTES % (AUTO) 3.1 % (1.7-9.3); NEUTROPHILS # (AUTO) 21.4 K/uL (1.8-7.7); NEUTROPHILS % (AUTO) 94.7 % (42.2-75.2); PLATELET COUNT (AUTO) 196 K/uL (140-450); RED BLOOD CELL COUNT(AUTO) 2.44 MIL/uL (4.20-6.10); RED CELL DISTRIBUTION WIDTH 15.3 % (11.6-13.7); WHITE BLOOD COUNT (AUTO) 22.6 K/uL (4.8-10.8)
[2020-03-06 06:28] LABS: ALBUMIN 1.7 g/dL (3.4-5.0); ANION GAP 9.5 (8-16); ASPARTATE AMINOTRANSFERASE 36 U/L (15-37); CARBON DIOXIDE 31.7 mmol/L (21-32); CHLORIDE 103 mmol/L (98-107); CREATININE 0.6 mg/dL (0.6-1.3); GLUCOSE 157 mg/dL (74-106); POTASSIUM 4.2 mmol/L (3.5-5.1); SODIUM SERUM 140 mmol/L (136-145); TOTAL BILIRUBIN 0.4 mg/dL (0.0-1.0); UREA NITROGEN, BLOOD 16 mg/dL (7-18)
[2020-03-06] MEDS: MIDAZOLAM MDV 100 MG in NACL 0.9% 80 ML IV PRN (07:21)
[2020-03-06] MEDS: CEFEPIME 1,000 MG in DEXTROSE 5% 50 ML IV SCH ×2 (08:08→19:31)
[2020-03-06] MEDS: NACL 0.45% 1,000 ML IV SCH ×2 (08:10→22:46)
[2020-03-06] MEDS: DEXAMETHASONE 10 MG/ML VIAL IVP SCH (09:46)
[2020-03-06] MEDS: PANTOPRAZOLE 40 MG INJ VIAL IVP SCH ×2 (09:46→20:53)
[2020-03-06] MEDS: ENOXAPARIN 80 MG/0.8 ML SYR SUBQ SCH ×2 (09:47→20:23)
[2020-03-06] MEDS: ACETAMINOPHEN 325 MG TAB PO PRN (23:20)
[2020-03-07] VITALS (93 sets, daily range): BP systolic 73–145; BP diastolic 15–96
[2020-03-07] MEDS: FOAM DRESSING TP SCH ×2 (01:14→13:00)
[2020-03-07] MEDS: Z-GUARD PASTE TP SCH ×2 (01:14→13:00)
[2020-03-07] MEDS: ALBUTEROL 0.083% 2.5 MG/3 ML NEBU INH SCH ×6 (03:16→23:48)
[2020-03-07 05:56] LABS: HEMATOCRIT 26.5 % (36-52); HEMOGLOBIN 8.2 g/dL (12.0-18.0); MEAN CORPUSCULAR HEMOGLOBIN 30 pg (27-31); MEAN CORPUSCULAR HGB CONC 31 g/dL (33-37); PLATELET COUNT (AUTO) 408 K/uL (140-450); RED BLOOD CELL COUNT(AUTO) 2.71 MIL/uL (4.20-6.10); RED CELL DISTRIBUTION WIDTH 16.3 % (11.6-13.7)
[2020-03-07 06:11] LABS: ALBUMIN 2.1 g/dL (3.4-5.0); ANION GAP 14.1 (8-16); ASPARTATE AMINOTRANSFERASE 75 U/L (15-37); CHLORIDE 101 mmol/L (98-107); CREATININE 1.1 mg/dL (0.6-1.3); GLUCOSE 175 mg/dL (74-106); POTASSIUM 5.1 mmol/L (3.5-5.1); SODIUM SERUM 138 mmol/L (136-145); TOTAL BILIRUBIN 0.5 mg/dL (0.0-1.0); UREA NITROGEN, BLOOD 33 mg/dL (7-18)
[2020-03-07] MEDS: CEFEPIME 1,000 MG in DEXTROSE 5% 50 ML IV SCH ×3 (08:00→20:59)
[2020-03-07 08:06] LABS: WHITE BLOOD COUNT (AUTO) 30.7 K/uL (4.8-10.8)
[2020-03-07] MEDS: ENOXAPARIN 80 MG/0.8 ML SYR SUBQ SCH ×2 (09:00→21:00)
[2020-03-07] MEDS: PANTOPRAZOLE 40 MG INJ VIAL IVP SCH ×2 (09:54→21:00)
[2020-03-07] MEDS ORDERED: LIDOCAINE MPF 1% 5 ML ONE (10:39)
[2020-03-07 12:09] LABS: BASOPHILS % (MANUAL) 0 % (0-2); EOSINOPHILS % (MANUAL) 0 % (0-4); LYMPHOCYTES % (MANUAL) 1 % (20-46); MONOCYTES % (MANUAL) 3 % (5-12)
[2020-03-07] MEDS: MIDAZOLAM MDV 100 MG in NACL 0.9% 80 ML IV PRN (12:36)
[2020-03-07] MEDS: NACL 0.45% 1,000 ML IV SCH (15:26)
[2020-03-07 16:04] LABS: APPEARANCE,URINE CLEAR (CLEAR); BILIRUBIN,URINE NEGATIVE (NEGATIVE); BLOOD, URINE NEGATIVE (NEGATIVE); COLOR,URINE YELLOW (YELLOW); LEUKOCYTE ESTERASE ,URINE NEGATIVE (NEGATIVE); NITRITE, URINE NEGATIVE (NEGATIVE); PH,URINE 5.5 (5.0-9.0); UGLUCOSE NEGATIVE (NEGATIVE)
[2020-03-07] MEDS: CLINDAMYCIN 600 MG in DEXTROSE 5% 50 ML IV SCH (21:13)
[2020-03-08] VITALS (102 sets, daily range): BP systolic 68–141; BP diastolic 40–91
[2020-03-08] MEDS: FOAM DRESSING TP SCH ×2 (01:00→13:00)
[2020-03-08] MEDS: Z-GUARD PASTE TP SCH ×2 (01:00→13:00)
[2020-03-08] MEDS: NACL 0.45% 1,000 ML IV SCH (02:40)
[2020-03-08] MEDS: fentaNYL citrate - 50mL vial 2.5 MG in NACL 0.9% 200 ML IV PRN (02:41)
[2020-03-08] MEDS: ALBUTEROL 0.083% 2.5 MG/3 ML NEBU INH SCH ×6 (03:52→23:50)
[2020-03-08] MEDS: CLINDAMYCIN 600 MG in DEXTROSE 5% 50 ML IV SCH (05:00)
[2020-03-08 06:19] LABS: HEMATOCRIT 26.4 % (36-52); HEMOGLOBIN 8.2 g/dL (12.0-18.0); MEAN CORPUSCULAR HEMOGLOBIN 30 pg (27-31); MEAN CORPUSCULAR HGB CONC 31 g/dL (33-37); MEAN CORPUSCULAR VOLUME 97.4 fL (80-94); PLATELET COUNT (AUTO) 344 K/uL (140-450); RED BLOOD CELL COUNT(AUTO) 2.71 MIL/uL (4.20-6.10)
[2020-03-08 06:54] LABS: WHITE BLOOD COUNT (AUTO) 32.4 K/uL (4.8-10.8)
[2020-03-08 06:55] LABS: LYMPHOCYTES % (MANUAL) 4 % (20-46); MONOCYTES % (MANUAL) 3 % (5-12)
[2020-03-08 07:28] LABS: ALBUMIN 1.8 g/dL (3.4-5.0); ANION GAP 8.5 (8-16); ASPARTATE AMINOTRANSFERASE 2331 U/L (15-37); CARBON DIOXIDE 34.1 mmol/L (21-32); CHLORIDE 105 mmol/L (98-107); CREATININE 0.8 mg/dL (0.6-1.3); GLUCOSE 118 mg/dL (74-106); POTASSIUM 4.6 mmol/L (3.5-5.1); SODIUM SERUM 143 mmol/L (136-145); TOTAL BILIRUBIN 0.8 mg/dL (0.0-1.0); UREA NITROGEN, BLOOD 29 mg/dL (7-18)
[2020-03-08] MEDS: CEFEPIME 1,000 MG in DEXTROSE 5% 50 ML IV SCH ×2 (08:00→20:00)
[2020-03-08 08:12] LABS: FOLIC ACID 4.1 ng/mL (>3.0)
[2020-03-08] MEDS: ENOXAPARIN 80 MG/0.8 ML SYR SUBQ SCH ×2 (09:00→21:00)
[2020-03-08] MEDS ORDERED: FUROSEMIDE 40 MG/4 ML VIAL IVP SCH (09:00)
[2020-03-08] MEDS: PANTOPRAZOLE 40 MG INJ VIAL IVP SCH ×2 (09:00→21:00)
[2020-03-08] MEDS ORDERED: VANCOMYCIN PER PHARMACY MC PRN (09:50)
[2020-03-08] MEDS: VANCOMYCIN 750 MG in DEXTROSE 5% 250 ML IV SCH ×2 (11:00→19:51)
[2020-03-08] MEDS: metroNIDAZOLE 500 MG/NS PREMIX 100 ML IV SCH ×2 (13:27→21:00)
[2020-03-08] MEDS: ACETAMINOPHEN 325 MG TAB PO PRN (16:08)
[2020-03-08] MEDS: NOREPINEPHRINE 4 MG in DEXTROSE 5% 250 ML IV PRN (17:59)
[2020-03-09] VITALS (101 sets, daily range): BP systolic 63–132; BP diastolic 39–74
[2020-03-09] MEDS: VANCOMYCIN 750 MG in DEXTROSE 5% 250 ML IV SCH ×3 (03:00→19:30)
[2020-03-09] MEDS: ALBUTEROL 0.083% 2.5 MG/3 ML NEBU INH SCH ×6 (03:25→22:37)
[2020-03-09] MEDS: FOAM DRESSING TP SCH ×2 (04:00→13:40)
[2020-03-09] MEDS: Z-GUARD PASTE TP SCH ×2 (04:00→13:41)
[2020-03-09] MEDS: metroNIDAZOLE 500 MG/NS PREMIX 100 ML IV SCH (05:00)
[2020-03-09 07:19] LABS: BASOPHILS # (AUTO) 0.1 K/uL (0.00-0.22); BASOPHILS % (AUTO) 0.3 % (0.0-2.0); EOSINOPHILS # (AUTO) 0.1 K/uL (0-0.4); EOSINOPHILS % (AUTO) 0.4 % (0.0-4.0); HEMATOCRIT 25.9 % (36-52); LYMPHOCYTES # (AUTO) 1.2 K/uL (2.0-11.5); MEAN CORPUSCULAR HEMOGLOBIN 30 pg (27-31); MEAN CORPUSCULAR HGB CONC 31 g/dL (33-37); MONOCYTES # (AUTO) 0.9 K/uL (0.8-1.0); MONOCYTES % (AUTO) 2.9 % (1.7-9.3); NEUTROPHILS # (AUTO) 28.4 K/uL (1.8-7.7); NEUTROPHILS % (AUTO) 92.4 % (42.2-75.2); PLATELET COUNT (AUTO) 313 K/uL (140-450); RED BLOOD CELL COUNT(AUTO) 2.64 MIL/uL (4.20-6.10); RED CELL DISTRIBUTION WIDTH 16.2 % (11.6-13.7)
[2020-03-09 07:56] LABS: ALBUMIN 1.5 g/dL (3.4-5.0); ANION GAP 2.4 (8-16); ASPARTATE AMINOTRANSFERASE 661 U/L (15-37); CARBON DIOXIDE 37.9 mmol/L (21-32); CHLORIDE 106 mmol/L (98-107); CREATININE 0.7 mg/dL (0.6-1.3); GLUCOSE 188 mg/dL (74-106); POTASSIUM 4.3 mmol/L (3.5-5.1); SODIUM SERUM 142 mmol/L (136-145); TOTAL BILIRUBIN 0.6 mg/dL (0.0-1.0); UREA NITROGEN, BLOOD 21 mg/dL (7-18)
[2020-03-09] MEDS: CEFEPIME 1,000 MG in DEXTROSE 5% 50 ML IV SCH (08:00)
[2020-03-09] MEDS: NACL 0.45% 1,000 ML IV SCH (08:06)
[2020-03-09 08:17] LABS: WHITE BLOOD COUNT (AUTO) 30.7 K/uL (4.8-10.8)
[2020-03-09] MEDS: ENOXAPARIN 80 MG/0.8 ML SYR SUBQ SCH ×2 (09:31→21:36)
[2020-03-09] MEDS: PANTOPRAZOLE 40 MG INJ VIAL IVP SCH ×2 (09:34→21:35)
[2020-03-09] MEDS: PIPERACILLIN/TAZOBACTAM 3.375 GM in DEXTROSE 5% 50 ML IV SCH ×3 (12:00→23:43)
[2020-03-09] MEDS: ACETAMINOPHEN 325 MG TAB PO PRN (16:55)
[2020-03-09] MEDS: NOREPINEPHRINE 4 MG in DEXTROSE 5% 250 ML IV PRN (17:42)
[2020-03-09] MEDS: MIDAZOLAM MDV 100 MG in NACL 0.9% 80 ML IV PRN (19:45)
[2020-03-10] VITALS (104 sets, daily range): BP systolic 84–160; BP diastolic 49–82
[2020-03-10] MEDS: Z-GUARD PASTE TP SCH ×2 (00:37→12:05)
[2020-03-10] MEDS: FOAM DRESSING TP SCH ×2 (00:37→12:05)
[2020-03-10] MEDS: VANCOMYCIN 750 MG in DEXTROSE 5% 250 ML IV SCH ×3 (03:16→19:54)
[2020-03-10] MEDS: ALBUTEROL 0.083% 2.5 MG/3 ML NEBU INH SCH ×6 (03:56→23:45)
[2020-03-10] MEDS ORDERED: NOREPINEPHRINE 4 MG/4 ML VIAL IV ONE (06:16)
[2020-03-10] MEDS: PIPERACILLIN/TAZOBACTAM 3.375 GM in DEXTROSE 5% 50 ML IV SCH ×3 (06:39→17:30)
[2020-03-10] MEDS: NOREPINEPHRINE 4 MG in DEXTROSE 5% 250 ML IV PRN ×2 (06:43→17:56)
[2020-03-10] MEDS: NACL 0.45% 1,000 ML IV SCH (08:06)
[2020-03-10] MEDS: PANTOPRAZOLE 40 MG INJ VIAL IVP SCH ×2 (08:26→20:54)
[2020-03-10] MEDS: ASCORBIC ACID 500 MG/5 ML ORASYR GT SCH (08:26)
[2020-03-10] MEDS: ZINC SULF 220 MG CAP PO SCH (08:26)
[2020-03-10] MEDS: ENOXAPARIN 80 MG/0.8 ML SYR SUBQ SCH ×2 (08:26→20:56)
[2020-03-10 09:15] LABS: ALBUMIN 1.5 g/dL (3.4-5.0); ANION GAP 7.4 (8-16); ASPARTATE AMINOTRANSFERASE 226 U/L (15-37); CARBON DIOXIDE 35.9 mmol/L (21-32); CHLORIDE 104 mmol/L (98-107); CREATININE 0.6 mg/dL (0.6-1.3); GLUCOSE 102 mg/dL (74-106); POTASSIUM 4.3 mmol/L (3.5-5.1); SODIUM SERUM 143 mmol/L (136-145); TOTAL BILIRUBIN 0.6 mg/dL (0.0-1.0); UREA NITROGEN, BLOOD 21 mg/dL (7-18)
[2020-03-10 10:39] LABS: HEMATOCRIT 27.3 % (36-52); HEMOGLOBIN 8.4 g/dL (12.0-18.0); MEAN CORPUSCULAR HEMOGLOBIN 30 pg (27-31); MEAN CORPUSCULAR HGB CONC 31 g/dL (33-37); MEAN CORPUSCULAR VOLUME 97.5 fL (80-94); PLATELET COUNT (AUTO) 364 K/uL (140-450); RED BLOOD CELL COUNT(AUTO) 2.79 MIL/uL (4.20-6.10); RED CELL DISTRIBUTION WIDTH 16.3 % (11.6-13.7)
[2020-03-10 10:58] LABS: WHITE BLOOD COUNT (AUTO) 38.9 K/uL (4.8-10.8)
[2020-03-10 10:59] LABS: EOSINOPHILS % (MANUAL) 1 % (0-4); LYMPHOCYTES % (MANUAL) 8 % (20-46); METAMYELOCYTES % 3 % (0-0); MONOCYTES % (MANUAL) 7 % (5-12); MYELOCYTES % 2 % (0-0)
[2020-03-10] MEDS: MIDAZOLAM MDV 100 MG in NACL 0.9% 80 ML IV PRN (12:47)
[2020-03-10] MEDS: fentaNYL citrate 1 MG in NACL 0.9% 80 ML IV PRN (17:33)
[2020-03-10] MEDS: FLUCONAZOLE 200 MG/NS PREMIX 100 ML IV SCH (21:48)
[2020-03-11] VITALS (103 sets, daily range): BP systolic 89–152; BP diastolic 44–74
[2020-03-11] MEDS: PIPERACILLIN/TAZOBACTAM 3.375 GM in DEXTROSE 5% 50 ML IV SCH ×5 (00:52→23:23)
[2020-03-11] MEDS: Z-GUARD PASTE TP SCH ×2 (01:30→13:00)
[2020-03-11] MEDS: FOAM DRESSING TP SCH ×2 (01:30→13:00)
[2020-03-11] MEDS ORDERED: VANCOMYCIN 500 MG VIAL ONE (02:46)
[2020-03-11] MEDS: ALBUTEROL 0.083% 2.5 MG/3 ML NEBU INH SCH ×6 (03:06→23:23)
[2020-03-11] MEDS: VANCOMYCIN 750 MG in DEXTROSE 5% 250 ML IV SCH ×3 (03:20→19:27)
[2020-03-11] MEDS: NOREPINEPHRINE 4 MG in DEXTROSE 5% 250 ML IV PRN ×2 (06:45→19:30)
[2020-03-11] MEDS: fentaNYL citrate 1 MG in NACL 0.9% 80 ML IV PRN ×2 (07:21→20:48)
[2020-03-11 07:54] LABS: ALBUMIN 1.4 g/dL (3.4-5.0); ANION GAP 2.9 (8-16); ASPARTATE AMINOTRANSFERASE 84 U/L (15-37); CARBON DIOXIDE 38.9 mmol/L (21-32); CHLORIDE 101 mmol/L (98-107); CREATININE 0.6 mg/dL (0.6-1.3); GLUCOSE 145 mg/dL (74-106); POTASSIUM 4.8 mmol/L (3.5-5.1); SODIUM SERUM 138 mmol/L (136-145); TOTAL BILIRUBIN 0.5 mg/dL (0.0-1.0); UREA NITROGEN, BLOOD 19 mg/dL (7-18)
[2020-03-11] MEDS: NACL 0.45% 1,000 ML IV SCH (08:06)
[2020-03-11] MEDS: ASCORBIC ACID 500 MG/5 ML ORASYR GT SCH (08:43)
[2020-03-11] MEDS: PANTOPRAZOLE 40 MG INJ VIAL IVP SCH ×2 (08:43→20:48)
[2020-03-11] MEDS: ZINC SULF 220 MG CAP PO SCH (08:43)
[2020-03-11] MEDS: ENOXAPARIN 80 MG/0.8 ML SYR SUBQ SCH ×2 (08:44→20:48)
[2020-03-11 10:27] LABS: BASOPHILS % (AUTO) 0.1 % (0.0-2.0); EOSINOPHILS # (AUTO) 0.4 K/uL (0-0.4); EOSINOPHILS % (AUTO) 1.5 % (0.0-4.0); HEMATOCRIT 24.5 % (36-52); HEMOGLOBIN 7.5 g/dL (12.0-18.0); LYMPHOCYTES # (AUTO) 1.6 K/uL (2.0-11.5); LYMPHOCYTES % (AUTO) 5.9 % (20.5-51.1); MEAN CORPUSCULAR HEMOGLOBIN 30 pg (27-31); MEAN CORPUSCULAR HGB CONC 31 g/dL (33-37); MEAN CORPUSCULAR VOLUME 96.6 fL (80-94); MONOCYTES # (AUTO) 1.4 K/uL (0.8-1.0); MONOCYTES % (AUTO) 5.2 % (1.7-9.3); NEUTROPHILS # (AUTO) 23.5 K/uL (1.8-7.7); NEUTROPHILS % (AUTO) 87.3 % (42.2-75.2); PLATELET COUNT (AUTO) 337 K/uL (140-450); RED BLOOD CELL COUNT(AUTO) 2.54 MIL/uL (4.20-6.10)
[2020-03-11 10:38] LABS: WHITE BLOOD COUNT (AUTO) 26.8 K/uL (4.8-10.8)
[2020-03-11] MEDS: FLUCONAZOLE 200 MG/NS PREMIX 100 ML IV SCH (20:49)
[2020-03-11] MEDS: MIDAZOLAM MDV 100 MG in NACL 0.9% 80 ML IV PRN (23:22)
[2020-03-12] VITALS (91 sets, daily range): BP systolic 84–218; BP diastolic 42–90
[2020-03-12] MEDS: FOAM DRESSING TP SCH ×2 (01:00→13:00)
[2020-03-12] MEDS: Z-GUARD PASTE TP SCH ×2 (01:00→13:00)
[2020-03-12] MEDS: ALBUTEROL 0.083% 2.5 MG/3 ML NEBU INH SCH ×6 (02:57→22:52)
[2020-03-12] MEDS: VANCOMYCIN 750 MG in DEXTROSE 5% 250 ML IV SCH ×3 (03:26→19:00)
[2020-03-12] MEDS: PIPERACILLIN/TAZOBACTAM 3.375 GM in DEXTROSE 5% 50 ML IV SCH ×3 (05:19→17:52)
[2020-03-12 06:21] LABS: HEMATOCRIT 22.6 % (36-52); MEAN CORPUSCULAR HEMOGLOBIN 30 pg (27-31); MEAN CORPUSCULAR HGB CONC 31 g/dL (33-37); MEAN CORPUSCULAR VOLUME 96.8 fL (80-94); PLATELET COUNT (AUTO) 292 K/uL (140-450); RED BLOOD CELL COUNT(AUTO) 2.34 MIL/uL (4.20-6.10); RED CELL DISTRIBUTION WIDTH 16.3 % (11.6-13.7); WHITE BLOOD COUNT (AUTO) 23.4 K/uL (4.8-10.8)
[2020-03-12 07:45] LABS: ALBUMIN 1.3 g/dL (3.4-5.0); ANION GAP 5.9 (8-16); ASPARTATE AMINOTRANSFERASE 62 U/L (15-37); CARBON DIOXIDE 34.6 mmol/L (21-32); CHLORIDE 99 mmol/L (98-107); CREATININE 0.7 mg/dL (0.6-1.3); GLUCOSE 133 mg/dL (74-106); POTASSIUM 4.5 mmol/L (3.5-5.1); SODIUM SERUM 135 mmol/L (136-145); TOTAL BILIRUBIN 0.5 mg/dL (0.0-1.0); UREA NITROGEN, BLOOD 15 mg/dL (7-18)
[2020-03-12] MEDS: NACL 0.45% 1,000 ML IV SCH (08:06)
[2020-03-12 08:12] LABS: LYMPHOCYTES % (MANUAL) 7 % (20-46); MONOCYTES % (MANUAL) 6 % (5-12)
[2020-03-12] MEDS: ENOXAPARIN 80 MG/0.8 ML SYR SUBQ SCH ×2 (09:00→21:34)
[2020-03-12] MEDS: ZINC SULF 220 MG CAP PO SCH (09:00)
[2020-03-12] MEDS: PANTOPRAZOLE 40 MG INJ VIAL IVP SCH ×2 (09:00→21:32)
[2020-03-12] MEDS: ASCORBIC ACID 500 MG/5 ML ORASYR GT SCH (09:00)
[2020-03-12] MEDS: fentaNYL citrate 1 MG in NACL 0.9% 80 ML IV PRN ×2 (12:18→23:39)
[2020-03-12] MEDS: FLUCONAZOLE 200 MG/NS PREMIX 100 ML IV SCH (21:32)
[2020-03-13] VITALS (71 sets, daily range): BP systolic 90–177; BP diastolic 48–119
[2020-03-13] MEDS: FOAM DRESSING TP SCH ×2 (01:42→13:10)
[2020-03-13] MEDS: Z-GUARD PASTE TP SCH ×2 (01:42→13:11)
[2020-03-13] MEDS: VANCOMYCIN 750 MG in DEXTROSE 5% 250 ML IV SCH ×3 (03:00→18:53)
[2020-03-13] MEDS: PIPERACILLIN/TAZOBACTAM 3.375 GM in DEXTROSE 5% 50 ML IV SCH ×5 (05:26→18:08)
[2020-03-13 05:44] LABS: BASOPHILS # (AUTO) 0.1 K/uL (0.00-0.22); BASOPHILS % (AUTO) 0.6 % (0.0-2.0); EOSINOPHILS # (AUTO) 0.2 K/uL (0-0.4); EOSINOPHILS % (AUTO) 1.4 % (0.0-4.0); HEMATOCRIT 24.7 % (36-52); HEMOGLOBIN 7.7 g/dL (12.0-18.0); LYMPHOCYTES # (AUTO) 1.2 K/uL (2.0-11.5); LYMPHOCYTES % (AUTO) 6.8 % (20.5-51.1); MEAN CORPUSCULAR HEMOGLOBIN 30 pg (27-31); MEAN CORPUSCULAR HGB CONC 31 g/dL (33-37); MEAN CORPUSCULAR VOLUME 97.2 fL (80-94); MONOCYTES # (AUTO) 1.6 K/uL (0.8-1.0); MONOCYTES % (AUTO) 8.8 % (1.7-9.3); NEUTROPHILS # (AUTO) 14.9 K/uL (1.8-7.7); NEUTROPHILS % (AUTO) 82.4 % (42.2-75.2); PLATELET COUNT (AUTO) 274 K/uL (140-450); RED BLOOD CELL COUNT(AUTO) 2.54 MIL/uL (4.20-6.10); RED CELL DISTRIBUTION WIDTH 16.3 % (11.6-13.7)
[2020-03-13 06:14] LABS: ALBUMIN 1.4 g/dL (3.4-5.0); ANION GAP 6.8 (8-16); ASPARTATE AMINOTRANSFERASE 54 U/L (15-37); CARBON DIOXIDE 35.7 mmol/L (21-32); CHLORIDE 99 mmol/L (98-107); CREATININE 0.6 mg/dL (0.6-1.3); GLUCOSE 83 mg/dL (74-106); POTASSIUM 4.5 mmol/L (3.5-5.1); SODIUM SERUM 137 mmol/L (136-145); TOTAL BILIRUBIN 0.5 mg/dL (0.0-1.0); UREA NITROGEN, BLOOD 11 mg/dL (7-18)
[2020-03-13] MEDS: ALBUTEROL 0.083% 2.5 MG/3 ML NEBU INH SCH ×6 (07:05→23:29)
[2020-03-13] MEDS: NACL 0.45% 1,000 ML IV SCH (08:06)
[2020-03-13] MEDS ORDERED: VANCOMYCIN PER PHARMACY MC PRN (08:55)
[2020-03-13] MEDS: ZINC SULF 220 MG CAP PO SCH (09:05)
[2020-03-13] MEDS: ASCORBIC ACID 500 MG/5 ML ORASYR GT SCH (09:05)
[2020-03-13] MEDS: PANTOPRAZOLE 40 MG INJ VIAL IVP SCH ×2 (09:05→21:04)
[2020-03-13] MEDS: ENOXAPARIN 80 MG/0.8 ML SYR SUBQ SCH ×2 (09:06→21:07)
[2020-03-13] MEDS: fentaNYL citrate 1 MG in NACL 0.9% 80 ML IV PRN ×2 (10:26→19:13)
[2020-03-13] MEDS: MIDAZOLAM MDV 100 MG in NACL 0.9% 80 ML IV PRN (12:20)
[2020-03-13] MEDS: FLUCONAZOLE 200 MG/NS PREMIX 100 ML IV SCH (21:04)
[2020-03-14] VITALS (105 sets, daily range): BP systolic 71–200; BP diastolic 17–145
[2020-03-14] MEDS: Z-GUARD PASTE TP SCH (01:00)
[2020-03-14] MEDS: FOAM DRESSING TP SCH ×2 (01:00→13:44)
[2020-03-14] MEDS: VANCOMYCIN 750 MG in DEXTROSE 5% 250 ML IV SCH (03:00)
[2020-03-14] MEDS: ALBUTEROL 0.083% 2.5 MG/3 ML NEBU INH SCH ×6 (03:16→23:32)
[2020-03-14] MEDS ORDERED: fentaNYL citrate 0.05 MG/ML VIAL ONE (06:01)
[2020-03-14 06:26] LABS: HEMATOCRIT 22.7 % (36-52); HEMOGLOBIN 7.1 g/dL (12.0-18.0); MEAN CORPUSCULAR HEMOGLOBIN 30 pg (27-31); MEAN CORPUSCULAR HGB CONC 31 g/dL (33-37); MEAN CORPUSCULAR VOLUME 96.7 fL (80-94); PLATELET COUNT (AUTO) 296 K/uL (140-450); RED BLOOD CELL COUNT(AUTO) 2.35 MIL/uL (4.20-6.10); RED CELL DISTRIBUTION WIDTH 17.2 % (11.6-13.7); WHITE BLOOD COUNT (AUTO) 15.9 K/uL (4.8-10.8)
[2020-03-14 07:00] LABS: ALBUMIN 1.3 g/dL (3.4-5.0); ANION GAP 4.2 (8-16); ASPARTATE AMINOTRANSFERASE 51 U/L (15-37); CHLORIDE 100 mmol/L (98-107); CREATININE 0.6 mg/dL (0.6-1.3); GLUCOSE 85 mg/dL (74-106); POTASSIUM 4.2 mmol/L (3.5-5.1); SODIUM SERUM 136 mmol/L (136-145); TOTAL BILIRUBIN 0.4 mg/dL (0.0-1.0); UREA NITROGEN, BLOOD 10 mg/dL (7-18)
[2020-03-14] MEDS: MIDAZOLAM MDV 100 MG in NACL 0.9% 80 ML IV PRN (07:09)
[2020-03-14] MEDS: fentaNYL citrate 1 MG in NACL 0.9% 80 ML IV PRN ×2 (07:15→16:19)
[2020-03-14] MEDS: NACL 0.45% 1,000 ML IV SCH (08:06)
[2020-03-14 09:27] LABS: EOSINOPHILS % (MANUAL) 2 % (0-4); LYMPHOCYTES % (MANUAL) 5 % (20-46); MONOCYTES % (MANUAL) 9 % (5-12)
[2020-03-14] MEDS: ENOXAPARIN 80 MG/0.8 ML SYR SUBQ SCH ×2 (09:28→21:00)
[2020-03-14] MEDS: PANTOPRAZOLE 40 MG INJ VIAL IVP SCH ×2 (09:29→21:00)
[2020-03-14] MEDS: ASCORBIC ACID 500 MG/5 ML ORASYR GT SCH (09:29)
[2020-03-14] MEDS: ZINC SULF 220 MG CAP PO SCH (09:29)
[2020-03-14] MEDS ORDERED: Z-GUARD PASTE TP PRN (13:05)
[2020-03-14] MEDS: VANCOMYCIN 1,000 MG in DEXTROSE 5% 250 ML IV SCH (21:00)
[2020-03-14] MEDS: FLUCONAZOLE 200 MG/NS PREMIX 100 ML IV SCH (21:00)
[2020-03-15] VITALS (100 sets, daily range): BP systolic 84–168; BP diastolic 41–80
[2020-03-15] MEDS: Z-GUARD PASTE TP SCH ×2 (01:00→13:49)
[2020-03-15] MEDS: FOAM DRESSING TP SCH ×2 (01:00→13:49)
[2020-03-15] MEDS: ALBUTEROL 0.083% 2.5 MG/3 ML NEBU INH SCH ×6 (03:12→23:00)
[2020-03-15] MEDS: fentaNYL citrate 1 MG in NACL 0.9% 80 ML IV PRN ×2 (04:03→13:48)
[2020-03-15 06:14] LABS: BASOPHILS # (AUTO) 0.1 K/uL (0.00-0.22); BASOPHILS % (AUTO) 0.6 % (0.0-2.0); EOSINOPHILS # (AUTO) 0.1 K/uL (0-0.4); EOSINOPHILS % (AUTO) 0.4 % (0.0-4.0); HEMATOCRIT 24.6 % (36-52); HEMOGLOBIN 7.5 g/dL (12.0-18.0); LYMPHOCYTES # (AUTO) 0.6 K/uL (2.0-11.5); LYMPHOCYTES % (AUTO) 3.4 % (20.5-51.1); MEAN CORPUSCULAR HEMOGLOBIN 30 pg (27-31); MEAN CORPUSCULAR HGB CONC 31 g/dL (33-37); MEAN CORPUSCULAR VOLUME 97.2 fL (80-94); MONOCYTES # (AUTO) 1.5 K/uL (0.8-1.0); MONOCYTES % (AUTO) 7.8 % (1.7-9.3); NEUTROPHILS # (AUTO) 16.3 K/uL (1.8-7.7); NEUTROPHILS % (AUTO) 87.8 % (42.2-75.2); PLATELET COUNT (AUTO) 327 K/uL (140-450); RED BLOOD CELL COUNT(AUTO) 2.53 MIL/uL (4.20-6.10); RED CELL DISTRIBUTION WIDTH 16.9 % (11.6-13.7); WHITE BLOOD COUNT (AUTO) 18.6 K/uL (4.8-10.8)
[2020-03-15 06:54] LABS: ALBUMIN 1.4 g/dL (3.4-5.0); ANION GAP 4.4 (8-16); ASPARTATE AMINOTRANSFERASE 34 U/L (15-37); CARBON DIOXIDE 36.9 mmol/L (21-32); CHLORIDE 103 mmol/L (98-107); CREATININE 0.5 mg/dL (0.6-1.3); GLUCOSE 92 mg/dL (74-106); POTASSIUM 4.3 mmol/L (3.5-5.1); SODIUM SERUM 140 mmol/L (136-145); TOTAL BILIRUBIN 0.3 mg/dL (0.0-1.0); UREA NITROGEN, BLOOD 9 mg/dL (7-18)
[2020-03-15] MEDS: NACL 0.45% 1,000 ML IV SCH (08:06)
[2020-03-15] MEDS: ASCORBIC ACID 500 MG/5 ML ORASYR GT SCH (08:28)
[2020-03-15] MEDS: ZINC SULF 220 MG CAP PO SCH (08:28)
[2020-03-15] MEDS: PANTOPRAZOLE 40 MG INJ VIAL IVP SCH ×2 (08:28→21:40)
[2020-03-15] MEDS: ACETAMINOPHEN 325 MG TAB PO PRN (08:38)
[2020-03-15] MEDS: ENOXAPARIN 80 MG/0.8 ML SYR SUBQ SCH ×2 (09:00→21:41)
[2020-03-15] MEDS: VANCOMYCIN 1,000 MG in DEXTROSE 5% 250 ML IV SCH ×2 (09:02→21:40)
[2020-03-15] MEDS: MIDAZOLAM MDV 100 MG in NACL 0.9% 80 ML IV PRN (18:14)
[2020-03-16] VITALS (71 sets, daily range): BP systolic 107–190; BP diastolic 59–99
[2020-03-16] MEDS: FOAM DRESSING TP SCH ×2 (01:00→13:00)
[2020-03-16] MEDS: Z-GUARD PASTE TP SCH ×2 (01:00→13:00)
[2020-03-16] MEDS: fentaNYL citrate 1 MG in NACL 0.9% 80 ML IV PRN (02:34)
[2020-03-16] MEDS: ALBUTEROL 0.083% 2.5 MG/3 ML NEBU INH SCH ×6 (03:00→23:01)
[2020-03-16 06:59] LABS: BASOPHILS # (AUTO) 0.1 K/uL (0.00-0.22); BASOPHILS % (AUTO) 0.4 % (0.0-2.0); EOSINOPHILS # (AUTO) 0.2 K/uL (0-0.4); EOSINOPHILS % (AUTO) 1.1 % (0.0-4.0); LYMPHOCYTES # (AUTO) 0.8 K/uL (2.0-11.5); LYMPHOCYTES % (AUTO) 5.5 % (20.5-51.1); MEAN CORPUSCULAR HEMOGLOBIN 30 pg (27-31); MEAN CORPUSCULAR HGB CONC 31 g/dL (33-37); MEAN CORPUSCULAR VOLUME 97.7 fL (80-94); MONOCYTES # (AUTO) 1.3 K/uL (0.8-1.0); MONOCYTES % (AUTO) 8.8 % (1.7-9.3); NEUTROPHILS # (AUTO) 12.6 K/uL (1.8-7.7); NEUTROPHILS % (AUTO) 84.2 % (42.2-75.2); PLATELET COUNT (AUTO) 338 K/uL (140-450); RED BLOOD CELL COUNT(AUTO) 2.31 MIL/uL (4.20-6.10); RED CELL DISTRIBUTION WIDTH 17.4 % (11.6-13.7); WHITE BLOOD COUNT (AUTO) 14.9 K/uL (4.8-10.8)
[2020-03-16 07:14] LABS: PROTHROMBIN TIME 11.5 secs (10.8-13.4)
[2020-03-16 07:21] LABS: ALBUMIN 1.4 g/dL (3.4-5.0); ANION GAP 5.1 (8-16); ASPARTATE AMINOTRANSFERASE 27 U/L (15-37); CARBON DIOXIDE 34.7 mmol/L (21-32); CHLORIDE 103 mmol/L (98-107); CREATININE 0.5 mg/dL (0.6-1.3); GLUCOSE 80 mg/dL (74-106); POTASSIUM 3.8 mmol/L (3.5-5.1); SODIUM SERUM 139 mmol/L (136-145); TOTAL BILIRUBIN 0.4 mg/dL (0.0-1.0); UREA NITROGEN, BLOOD 7 mg/dL (7-18)
[2020-03-16] MEDS ORDERED: ASCORBIC ACID 500 MG TAB ONE (09:14)
[2020-03-16] MEDS: PANTOPRAZOLE 40 MG INJ VIAL IVP SCH ×2 (09:16→21:35)
[2020-03-16] MEDS: ASCORBIC ACID 500 MG/5 ML ORASYR GT SCH (09:16)
[2020-03-16] MEDS: VANCOMYCIN HCL 1.25 GM in DEXTROSE 5% 250 ML IV SCH ×2 (09:16→20:27)
[2020-03-16] MEDS: ZINC SULF 220 MG CAP PO SCH (09:17)
[2020-03-16] MEDS: ENOXAPARIN 80 MG/0.8 ML SYR SUBQ SCH ×2 (09:17→21:41)
[2020-03-16 21:56] LABS: HEMATOCRIT 32.5 % (36-52); HEMOGLOBIN 10.2 g/dL (12.0-18.0)
[2020-03-17] VITALS (89 sets, daily range): BP systolic 111–167; BP diastolic 58–99
[2020-03-17] MEDS: Z-GUARD PASTE TP SCH ×2 (01:00→12:29)
[2020-03-17] MEDS: FOAM DRESSING TP SCH ×2 (01:00→12:29)
[2020-03-17] MEDS: ALBUTEROL 0.083% 2.5 MG/3 ML NEBU INH SCH ×5 (03:32→19:00)
[2020-03-17] MEDS: MIDAZOLAM MDV 50 MG in NACL 0.9% 40 ML IV PRN (06:19)
[2020-03-17 06:25] LABS: BASOPHILS % (AUTO) 0.1 % (0.0-2.0); EOSINOPHILS # (AUTO) 0.1 K/uL (0-0.4); EOSINOPHILS % (AUTO) 0.4 % (0.0-4.0); HEMATOCRIT 29.5 % (36-52); HEMOGLOBIN 9.4 g/dL (12.0-18.0); LYMPHOCYTES # (AUTO) 0.7 K/uL (2.0-11.5); LYMPHOCYTES % (AUTO) 5.1 % (20.5-51.1); MEAN CORPUSCULAR HEMOGLOBIN 30 pg (27-31); MEAN CORPUSCULAR HGB CONC 32 g/dL (33-37); MEAN CORPUSCULAR VOLUME 95.1 fL (80-94); MONOCYTES # (AUTO) 1.2 K/uL (0.8-1.0); MONOCYTES % (AUTO) 8.9 % (1.7-9.3); NEUTROPHILS # (AUTO) 11.4 K/uL (1.8-7.7); NEUTROPHILS % (AUTO) 85.5 % (42.2-75.2); PLATELET COUNT (AUTO) 315 K/uL (140-450); RED CELL DISTRIBUTION WIDTH 17.1 % (11.6-13.7); WHITE BLOOD COUNT (AUTO) 13.3 K/uL (4.8-10.8)
[2020-03-17 06:44] LABS: ALBUMIN 1.4 g/dL (3.4-5.0); ANION GAP 4.6 (8-16); ASPARTATE AMINOTRANSFERASE 22 U/L (15-37); CARBON DIOXIDE 35.2 mmol/L (21-32); CHLORIDE 104 mmol/L (98-107); CREATININE 0.5 mg/dL (0.6-1.3); GLUCOSE 71 mg/dL (74-106); POTASSIUM 3.8 mmol/L (3.5-5.1); SODIUM SERUM 140 mmol/L (136-145); TOTAL BILIRUBIN 0.6 mg/dL (0.0-1.0); UREA NITROGEN, BLOOD 9 mg/dL (7-18)
[2020-03-17] MEDS: NACL 0.45% 1,000 ML IV SCH (08:56)
[2020-03-17] MEDS: ZINC SULF 220 MG CAP PO SCH (08:57)
[2020-03-17] MEDS: ENOXAPARIN 80 MG/0.8 ML SYR SUBQ SCH ×2 (08:57→21:00)
[2020-03-17] MEDS: PANTOPRAZOLE 40 MG INJ VIAL IVP SCH ×2 (08:57→21:00)
[2020-03-17] MEDS: ASCORBIC ACID 500 MG/5 ML ORASYR GT SCH (09:00)
[2020-03-17] MEDS: VANCOMYCIN HCL 1.25 GM in DEXTROSE 5% 250 ML IV SCH ×2 (09:00→22:21)
[2020-03-17] MEDS: ACETAMINOPHEN 325 MG TAB PO PRN (15:35)
[2020-03-18] VITALS (60 sets, daily range): BP systolic 100–210; BP diastolic 60–98
[2020-03-18] MEDS: FENTANYL CITRATE IV PRN (00:06)
[2020-03-18] MEDS: NACL 0.9% IV PRN (00:06)
[2020-03-18] MEDS: FOAM DRESSING TP SCH ×2 (01:00→13:03)
[2020-03-18] MEDS: Z-GUARD PASTE TP SCH ×2 (01:00→13:03)
[2020-03-18] MEDS ORDERED: ACETAMINOPHEN 650 MG SUPP RC ONE (05:15)
[2020-03-18] MEDS: ACETAMINOPHEN 325 MG TAB PO PRN (05:27)
[2020-03-18 06:16] LABS: BASOPHILS % (AUTO) 0.3 % (0.0-2.0); EOSINOPHILS # (AUTO) 0.1 K/uL (0-0.4); EOSINOPHILS % (AUTO) 0.6 % (0.0-4.0); HEMATOCRIT 30.6 % (36-52); HEMOGLOBIN 9.8 g/dL (12.0-18.0); LYMPHOCYTES # (AUTO) 0.5 K/uL (2.0-11.5); MEAN CORPUSCULAR HEMOGLOBIN 31 pg (27-31); MEAN CORPUSCULAR HGB CONC 32 g/dL (33-37); NEUTROPHILS # (AUTO) 12.4 K/uL (1.8-7.7); PLATELET COUNT (AUTO) 362 K/uL (140-450); RED BLOOD CELL COUNT(AUTO) 3.22 MIL/uL (4.20-6.10); RED CELL DISTRIBUTION WIDTH 16.4 % (11.6-13.7)
[2020-03-18 06:24] LABS: ALBUMIN 1.5 g/dL (3.4-5.0); ANION GAP 8.6 (8-16); ASPARTATE AMINOTRANSFERASE 32 U/L (15-37); CARBON DIOXIDE 31.9 mmol/L (21-32); CHLORIDE 100 mmol/L (98-107); CREATININE 0.6 mg/dL (0.6-1.3); GLUCOSE 85 mg/dL (74-106); POTASSIUM 3.5 mmol/L (3.5-5.1); SODIUM SERUM 137 mmol/L (136-145); TOTAL BILIRUBIN 0.6 mg/dL (0.0-1.0); UREA NITROGEN, BLOOD 10 mg/dL (7-18)
[2020-03-18 07:26] LABS: LYMPHOCYTES % (AUTO) 3.4 % (20.5-51.1); NEUTROPHILS % (AUTO) 88.7 % (42.2-75.2)
[2020-03-18] MEDS: ALBUTEROL 0.083% 2.5 MG/3 ML NEBU INH SCH ×4 (07:26→23:00)
[2020-03-18] MEDS: NACL 0.45% 1,000 ML IV SCH (08:06)
[2020-03-18] MEDS: PANTOPRAZOLE 40 MG INJ VIAL IVP SCH ×2 (09:00→21:02)
[2020-03-18] MEDS: ASCORBIC ACID 500 MG/5 ML ORASYR GT SCH (09:00)
[2020-03-18] MEDS: ENOXAPARIN 80 MG/0.8 ML SYR SUBQ SCH ×2 (09:00→21:10)
[2020-03-18] MEDS: ZINC SULF 220 MG CAP PO SCH (09:00)
[2020-03-18] MEDS: VANCOMYCIN HCL 1.25 GM in DEXTROSE 5% 250 ML IV SCH ×2 (09:00→21:02)
[2020-03-18] MEDS ORDERED: ASCORBIC ACID 500 MG TAB ONE (10:36)
[2020-03-18] MEDS ORDERED: KCL 20 MEQ/WATER INJ PREMIX 100 ML IV SCH (11:30)
[2020-03-19] VITALS (67 sets, daily range): BP systolic 96–159; BP diastolic 54–103
[2020-03-19] MEDS: Z-GUARD PASTE TP SCH ×2 (01:00→13:00)
[2020-03-19] MEDS: FOAM DRESSING TP SCH ×2 (01:00→13:00)
[2020-03-19] MEDS: ALBUTEROL 0.083% 2.5 MG/3 ML NEBU INH SCH ×6 (03:09→23:00)
[2020-03-19 06:31] LABS: BASOPHILS % (AUTO) 0.4 % (0.0-2.0); EOSINOPHILS # (AUTO) 0.1 K/uL (0-0.4); EOSINOPHILS % (AUTO) 0.8 % (0.0-4.0); HEMATOCRIT 30.1 % (36-52); HEMOGLOBIN 9.7 g/dL (12.0-18.0); LYMPHOCYTES # (AUTO) 0.7 K/uL (2.0-11.5); LYMPHOCYTES % (AUTO) 6.5 % (20.5-51.1); MEAN CORPUSCULAR HEMOGLOBIN 30 pg (27-31); MEAN CORPUSCULAR HGB CONC 32 g/dL (33-37); MEAN CORPUSCULAR VOLUME 94.8 fL (80-94); MONOCYTES # (AUTO) 0.9 K/uL (0.8-1.0); MONOCYTES % (AUTO) 8.5 % (1.7-9.3); NEUTROPHILS % (AUTO) 83.8 % (42.2-75.2); PLATELET COUNT (AUTO) 356 K/uL (140-450); RED BLOOD CELL COUNT(AUTO) 3.18 MIL/uL (4.20-6.10); RED CELL DISTRIBUTION WIDTH 16.4 % (11.6-13.7); WHITE BLOOD COUNT (AUTO) 10.7 K/uL (4.8-10.8)
[2020-03-19 06:53] LABS: ALBUMIN 1.4 g/dL (3.4-5.0); ANION GAP 6.1 (8-16); ASPARTATE AMINOTRANSFERASE 23 U/L (15-37); CARBON DIOXIDE 34.5 mmol/L (21-32); CHLORIDE 99 mmol/L (98-107); CREATININE 0.6 mg/dL (0.6-1.3); GLUCOSE 61 mg/dL (74-106); POTASSIUM 3.6 mmol/L (3.5-5.1); SODIUM SERUM 136 mmol/L (136-145); TOTAL BILIRUBIN 0.6 mg/dL (0.0-1.0); UREA NITROGEN, BLOOD 7 mg/dL (7-18)
[2020-03-19] MEDS: NACL 0.45% 1,000 ML IV SCH (08:06)
[2020-03-19] MEDS ORDERED: ASCORBIC ACID 500 MG TAB ONE (08:11)
[2020-03-19] MEDS: ASCORBIC ACID 500 MG/5 ML ORASYR GT SCH (08:44)
[2020-03-19] MEDS: PANTOPRAZOLE 40 MG INJ VIAL IVP SCH ×2 (08:44→21:33)
[2020-03-19] MEDS: ZINC SULF 220 MG CAP PO SCH (08:45)
[2020-03-19] MEDS: ENOXAPARIN 80 MG/0.8 ML SYR SUBQ SCH ×2 (08:45→21:33)
[2020-03-19] MEDS: VANCOMYCIN HCL 1.25 GM in DEXTROSE 5% 250 ML IV SCH (09:00)
[2020-03-19] MEDS: FENTANYL CITRATE IV PRN (10:48)
[2020-03-19] MEDS: NACL 0.9% IV PRN (10:48)
[2020-03-19] MEDS: MIDAZOLAM MDV 50 MG in NACL 0.9% 40 ML IV PRN (10:50)
[2020-03-20] VITALS (92 sets, daily range): BP systolic 93–181; BP diastolic 51–118
[2020-03-20] MEDS: Z-GUARD PASTE TP SCH ×2 (01:09→12:40)
[2020-03-20] MEDS: FOAM DRESSING TP SCH ×2 (01:09→12:40)
[2020-03-20] MEDS: ALBUTEROL 0.083% 2.5 MG/3 ML NEBU INH SCH ×6 (03:00→23:36)
[2020-03-20] MEDS: ACETAMINOPHEN 325 MG TAB PO PRN ×2 (05:33→12:41)
[2020-03-20 06:26] LABS: BASOPHILS # (AUTO) 0.1 K/uL (0.00-0.22); BASOPHILS % (AUTO) 0.8 % (0.0-2.0); EOSINOPHILS # (AUTO) 0.1 K/uL (0-0.4); EOSINOPHILS % (AUTO) 1.2 % (0.0-4.0); HEMATOCRIT 31.7 % (36-52); HEMOGLOBIN 10.1 g/dL (12.0-18.0); LYMPHOCYTES # (AUTO) 0.7 K/uL (2.0-11.5); LYMPHOCYTES % (AUTO) 7.4 % (20.5-51.1); MEAN CORPUSCULAR HEMOGLOBIN 30 pg (27-31); MEAN CORPUSCULAR HGB CONC 32 g/dL (33-37); MEAN CORPUSCULAR VOLUME 95.2 fL (80-94); MONOCYTES # (AUTO) 0.8 K/uL (0.8-1.0); MONOCYTES % (AUTO) 8.2 % (1.7-9.3); NEUTROPHILS # (AUTO) 7.9 K/uL (1.8-7.7); NEUTROPHILS % (AUTO) 82.4 % (42.2-75.2); PLATELET COUNT (AUTO) 322 K/uL (140-450); RED BLOOD CELL COUNT(AUTO) 3.33 MIL/uL (4.20-6.10); RED CELL DISTRIBUTION WIDTH 16.3 % (11.6-13.7); WHITE BLOOD COUNT (AUTO) 9.6 K/uL (4.8-10.8)
[2020-03-20 07:01] LABS: ALBUMIN 1.5 g/dL (3.4-5.0); ANION GAP 7.8 (8-16); ASPARTATE AMINOTRANSFERASE 39 U/L (15-37); CARBON DIOXIDE 31.2 mmol/L (21-32); CHLORIDE 99 mmol/L (98-107); CREATININE 0.5 mg/dL (0.6-1.3); GLUCOSE 129 mg/dL (74-106); SODIUM SERUM 134 mmol/L (136-145); TOTAL BILIRUBIN 0.4 mg/dL (0.0-1.0); UREA NITROGEN, BLOOD 9 mg/dL (7-18)
[2020-03-20] MEDS: ASCORBIC ACID 500 MG/5 ML ORASYR GT SCH (09:00)
[2020-03-20] MEDS: PANTOPRAZOLE 40 MG INJ VIAL IVP SCH ×2 (09:40→20:30)
[2020-03-20] MEDS: ZINC SULF 220 MG CAP PO SCH (09:40)
[2020-03-20] MEDS: ENOXAPARIN 80 MG/0.8 ML SYR SUBQ SCH ×2 (09:41→20:31)
[2020-03-20] MEDS: VANCOMYCIN 1,000 MG in DEXTROSE 5% 250 ML IV SCH ×2 (10:15→20:30)
[2020-03-20] MEDS: NACL 0.9% IV PRN ×2 (15:13→15:47)
[2020-03-20] MEDS: FENTANYL CITRATE IV PRN ×2 (15:13→15:47)
[2020-03-20] MEDS: NACL 0.45% 1,000 ML IV SCH (19:34)
[2020-03-21] VITALS (68 sets, daily range): BP systolic 100–168; BP diastolic 59–99
[2020-03-21] MEDS: Z-GUARD PASTE TP SCH ×2 (00:35→13:00)
[2020-03-21] MEDS: FOAM DRESSING TP SCH ×2 (00:35→13:00)
[2020-03-21] MEDS: ALBUTEROL 0.083% 2.5 MG/3 ML NEBU INH SCH ×6 (03:17→23:40)
[2020-03-21] MEDS: ACETAMINOPHEN 325 MG TAB PO PRN (04:22)
[2020-03-21 05:00] LABS: BASOPHILS % (AUTO) 0.3 % (0.0-2.0); EOSINOPHILS # (AUTO) 0.1 K/uL (0-0.4); HEMATOCRIT 30.9 % (36-52); HEMOGLOBIN 9.8 g/dL (12.0-18.0); LYMPHOCYTES # (AUTO) 0.7 K/uL (2.0-11.5); MEAN CORPUSCULAR HEMOGLOBIN 30 pg (27-31); MEAN CORPUSCULAR HGB CONC 32 g/dL (33-37); MEAN CORPUSCULAR VOLUME 94.4 fL (80-94); MONOCYTES # (AUTO) 0.7 K/uL (0.8-1.0); MONOCYTES % (AUTO) 7.5 % (1.7-9.3); NEUTROPHILS # (AUTO) 8.1 K/uL (1.8-7.7); NEUTROPHILS % (AUTO) 83.9 % (42.2-75.2); PLATELET COUNT (AUTO) 258 K/uL (140-450); RED BLOOD CELL COUNT(AUTO) 3.27 MIL/uL (4.20-6.10); RED CELL DISTRIBUTION WIDTH 15.9 % (11.6-13.7); WHITE BLOOD COUNT (AUTO) 9.7 K/uL (4.8-10.8)
[2020-03-21 05:10] LABS: LYMPHOCYTES % (AUTO) 7.3 % (20.5-51.1)
[2020-03-21 05:21] LABS: ALBUMIN 1.4 g/dL (3.4-5.0); ANION GAP 4.7 (8-16); ASPARTATE AMINOTRANSFERASE 37 U/L (15-37); CARBON DIOXIDE 34.6 mmol/L (21-32); CHLORIDE 97 mmol/L (98-107); CREATININE 0.5 mg/dL (0.6-1.3); GLUCOSE 119 mg/dL (74-106); POTASSIUM 4.3 mmol/L (3.5-5.1); SODIUM SERUM 132 mmol/L (136-145); TOTAL BILIRUBIN 0.4 mg/dL (0.0-1.0); UREA NITROGEN, BLOOD 10 mg/dL (7-18)
[2020-03-21] MEDS ORDERED: ASCORBIC ACID 500 MG TAB ONE (09:09)
[2020-03-21] MEDS: ZINC SULF 220 MG CAP PO SCH (09:35)
[2020-03-21] MEDS: PANTOPRAZOLE 40 MG INJ VIAL IVP SCH ×2 (09:35→20:49)
[2020-03-21] MEDS: ASCORBIC ACID 500 MG/5 ML ORASYR GT SCH (09:35)
[2020-03-21] MEDS: ENOXAPARIN 80 MG/0.8 ML SYR SUBQ SCH (09:37)
[2020-03-21] MEDS: VANCOMYCIN 1,000 MG in DEXTROSE 5% 250 ML IV SCH ×2 (09:38→20:47)
[2020-03-21] MEDS: MIDAZOLAM MDV 50 MG in NACL 0.9% 40 ML IV PRN (15:09)
[2020-03-21] MEDS: NACL 0.45% 1,000 ML IV SCH (16:00)
[2020-03-22] VITALS (92 sets, daily range): BP systolic 107–173; BP diastolic 57–121
[2020-03-22] MEDS: ALBUTEROL 0.083% 2.5 MG/3 ML NEBU INH SCH ×6 (04:06→23:00)
[2020-03-22] MEDS: Z-GUARD PASTE TP SCH ×2 (05:48→13:00)
[2020-03-22] MEDS: FOAM DRESSING TP SCH ×2 (05:49→13:00)
[2020-03-22] MEDS: ENOXAPARIN 80 MG/0.8 ML SYR SUBQ SCH ×3 (05:51→21:30)
[2020-03-22 06:19] LABS: BASOPHILS % (AUTO) 0.4 % (0.0-2.0); EOSINOPHILS # (AUTO) 0.2 K/uL (0-0.4); EOSINOPHILS % (AUTO) 1.7 % (0.0-4.0); HEMATOCRIT 29.3 % (36-52); HEMOGLOBIN 9.6 g/dL (12.0-18.0); LYMPHOCYTES # (AUTO) 0.9 K/uL (2.0-11.5); LYMPHOCYTES % (AUTO) 9.9 % (20.5-51.1); MEAN CORPUSCULAR HEMOGLOBIN 31 pg (27-31); MEAN CORPUSCULAR HGB CONC 33 g/dL (33-37); MEAN CORPUSCULAR VOLUME 93.5 fL (80-94); MONOCYTES # (AUTO) 0.8 K/uL (0.8-1.0); MONOCYTES % (AUTO) 8.1 % (1.7-9.3); NEUTROPHILS # (AUTO) 7.6 K/uL (1.8-7.7); NEUTROPHILS % (AUTO) 79.9 % (42.2-75.2); PLATELET COUNT (AUTO) 243 K/uL (140-450); RED BLOOD CELL COUNT(AUTO) 3.14 MIL/uL (4.20-6.10); WHITE BLOOD COUNT (AUTO) 9.5 K/uL (4.8-10.8)
[2020-03-22] MEDS: NACL 0.45% 1,000 ML IV SCH (08:06)
[2020-03-22] MEDS: ZINC SULF 220 MG CAP PO SCH (09:28)
[2020-03-22] MEDS: ASCORBIC ACID 500 MG/5 ML ORASYR GT SCH (09:28)
[2020-03-22] MEDS: PANTOPRAZOLE 40 MG INJ VIAL IVP SCH (09:29)
[2020-03-22] MEDS: VANCOMYCIN 1,000 MG in DEXTROSE 5% 250 ML IV SCH (10:42)
[2020-03-22 15:59] LABS: APPEARANCE,URINE CLEAR (CLEAR); BILIRUBIN,URINE NEGATIVE (NEGATIVE); BLOOD, URINE NEGATIVE (NEGATIVE); COLOR,URINE YELLOW (YELLOW); LEUKOCYTE ESTERASE ,URINE NEGATIVE (NEGATIVE); NITRITE, URINE NEGATIVE (NEGATIVE); PH,URINE 7.5 (5.0-9.0); UGLUCOSE NEGATIVE (NEGATIVE)
[2020-03-22] MEDS: PIPERACILLIN/TAZOBACTAM 3.375 GM in DEXTROSE 5% 50 ML IV SCH (17:50)
[2020-03-23] VITALS (95 sets, daily range): BP systolic 120–178; BP diastolic 60–108
[2020-03-23] MEDS: PANTOPRAZOLE 40 MG INJ VIAL IVP SCH ×3 (00:54→20:22)
[2020-03-23] MEDS: PIPERACILLIN/TAZOBACTAM 3.375 GM in DEXTROSE 5% 50 ML IV SCH ×5 (00:57→23:48)
[2020-03-23] MEDS: ALBUTEROL 0.083% 2.5 MG/3 ML NEBU INH SCH ×6 (03:25→23:04)
[2020-03-23 06:42] LABS: BASOPHILS # (AUTO) 0.1 K/uL (0.00-0.22); BASOPHILS % (AUTO) 0.5 % (0.0-2.0); EOSINOPHILS # (AUTO) 0.1 K/uL (0-0.4); EOSINOPHILS % (AUTO) 0.5 % (0.0-4.0); HEMOGLOBIN 9.6 g/dL (12.0-18.0); LYMPHOCYTES # (AUTO) 0.8 K/uL (2.0-11.5); LYMPHOCYTES % (AUTO) 7.4 % (20.5-51.1); MEAN CORPUSCULAR HEMOGLOBIN 30 pg (27-31); MEAN CORPUSCULAR HGB CONC 32 g/dL (33-37); MEAN CORPUSCULAR VOLUME 93.4 fL (80-94); MONOCYTES # (AUTO) 0.9 K/uL (0.8-1.0); MONOCYTES % (AUTO) 8.7 % (1.7-9.3); NEUTROPHILS # (AUTO) 8.9 K/uL (1.8-7.7); NEUTROPHILS % (AUTO) 82.9 % (42.2-75.2); PLATELET COUNT (AUTO) 305 K/uL (140-450); RED BLOOD CELL COUNT(AUTO) 3.21 MIL/uL (4.20-6.10); RED CELL DISTRIBUTION WIDTH 15.6 % (11.6-13.7); WHITE BLOOD COUNT (AUTO) 10.8 K/uL (4.8-10.8)
[2020-03-23 07:09] LABS: CARBON DIOXIDE 31.6 mmol/L (21-32); CHLORIDE 100 mmol/L (98-107); CREATININE 0.7 mg/dL (0.6-1.3); GLUCOSE 126 mg/dL (74-106); POTASSIUM 3.6 mmol/L (3.5-5.1); SODIUM SERUM 135 mmol/L (136-145); UREA NITROGEN, BLOOD 10 mg/dL (7-18)
[2020-03-23] MEDS: FOAM DRESSING TP SCH ×2 (08:00→13:00)
[2020-03-23] MEDS: NACL 0.45% 1,000 ML IV SCH (08:06)
[2020-03-23] MEDS: Z-GUARD PASTE TP SCH ×2 (08:07→13:00)
[2020-03-23] MEDS: ACETAMINOPHEN 325 MG TAB PO PRN (09:39)
[2020-03-23] MEDS: ZINC SULF 220 MG CAP PO SCH (09:40)
[2020-03-23] MEDS: ASCORBIC ACID 500 MG/5 ML ORASYR GT SCH (09:41)
[2020-03-24] VITALS (106 sets, daily range): BP systolic 120–196; BP diastolic 60–107
[2020-03-24] MEDS: Z-GUARD PASTE TP SCH ×2 (01:02→13:00)
[2020-03-24] MEDS: FOAM DRESSING TP SCH ×2 (01:02→13:00)
[2020-03-24] MEDS: hydrALAZINE 20 MG/ML VIAL IVP PRN ×3 (01:24→18:54)
[2020-03-24] MEDS: ALBUTEROL 0.083% 2.5 MG/3 ML NEBU INH SCH ×7 (03:00→19:25)
[2020-03-24] MEDS: PIPERACILLIN/TAZOBACTAM 3.375 GM in DEXTROSE 5% 50 ML IV SCH ×3 (06:00→17:08)
[2020-03-24 06:31] LABS: BASOPHILS % (AUTO) 0.2 % (0.0-2.0); EOSINOPHILS % (AUTO) 0.2 % (0.0-4.0); HEMATOCRIT 31.1 % (36-52); HEMOGLOBIN 9.7 g/dL (12.0-18.0); LYMPHOCYTES # (AUTO) 0.8 K/uL (2.0-11.5); LYMPHOCYTES % (AUTO) 6.3 % (20.5-51.1); MEAN CORPUSCULAR HEMOGLOBIN 29 pg (27-31); MEAN CORPUSCULAR HGB CONC 31 g/dL (33-37); MEAN CORPUSCULAR VOLUME 92.8 fL (80-94); MONOCYTES # (AUTO) 1.2 K/uL (0.8-1.0); MONOCYTES % (AUTO) 9.3 % (1.7-9.3); NEUTROPHILS # (AUTO) 11.1 K/uL (1.8-7.7); PLATELET COUNT (AUTO) 404 K/uL (140-450); RED BLOOD CELL COUNT(AUTO) 3.35 MIL/uL (4.20-6.10); RED CELL DISTRIBUTION WIDTH 15.7 % (11.6-13.7); WHITE BLOOD COUNT (AUTO) 13.2 K/uL (4.8-10.8)
[2020-03-24 07:17] LABS: ANION GAP 7.1 (8-16); CARBON DIOXIDE 31.6 mmol/L (21-32); CHLORIDE 99 mmol/L (98-107); CREATININE 0.7 mg/dL (0.6-1.3); GLUCOSE 125 mg/dL (74-106); POTASSIUM 3.7 mmol/L (3.5-5.1); SODIUM SERUM 134 mmol/L (136-145); UREA NITROGEN, BLOOD 12 mg/dL (7-18)
[2020-03-24] MEDS: NACL 0.45% 1,000 ML IV SCH (08:06)
[2020-03-24] MEDS: ZINC SULF 220 MG CAP PO SCH (09:30)
[2020-03-24] MEDS: PANTOPRAZOLE 40 MG INJ VIAL IVP SCH ×2 (09:30→20:25)
[2020-03-24] MEDS: ASCORBIC ACID 500 MG/5 ML ORASYR GT SCH (09:30)
[2020-03-24] MEDS: NACL 0.9% IV PRN ×2 (10:34→13:03)
[2020-03-24] MEDS: FENTANYL CITRATE IV PRN ×2 (10:34→13:03)
[2020-03-25] VITALS (99 sets, daily range): BP systolic 90–186; BP diastolic 52–97
[2020-03-25] MEDS: FOAM DRESSING TP SCH (00:34)
[2020-03-25] MEDS: Z-GUARD PASTE TP SCH (00:35)
[2020-03-25] MEDS: NACL 0.9% IV PRN ×2 (02:27→15:19)
[2020-03-25] MEDS: FENTANYL CITRATE IV PRN ×2 (02:27→15:19)
[2020-03-25] MEDS: hydrALAZINE 20 MG/ML VIAL IVP PRN ×2 (04:20)
[2020-03-25] MEDS: PIPERACILLIN/TAZOBACTAM 3.375 GM in DEXTROSE 5% 50 ML IV SCH ×5 (06:00→17:35)
[2020-03-25 06:10] LABS: BASOPHILS # (AUTO) 0.1 K/uL (0.00-0.22); BASOPHILS % (AUTO) 0.3 % (0.0-2.0); EOSINOPHILS % (AUTO) 0.2 % (0.0-4.0); LYMPHOCYTES # (AUTO) 0.9 K/uL (2.0-11.5); LYMPHOCYTES % (AUTO) 5.4 % (20.5-51.1); MEAN CORPUSCULAR HEMOGLOBIN 29 pg (27-31); MEAN CORPUSCULAR HGB CONC 31 g/dL (33-37); MEAN CORPUSCULAR VOLUME 93.9 fL (80-94); MONOCYTES # (AUTO) 1.9 K/uL (0.8-1.0); MONOCYTES % (AUTO) 11.8 % (1.7-9.3); NEUTROPHILS # (AUTO) 13.1 K/uL (1.8-7.7); NEUTROPHILS % (AUTO) 82.3 % (42.2-75.2); PLATELET COUNT (AUTO) 463 K/uL (140-450); RED BLOOD CELL COUNT(AUTO) 3.41 MIL/uL (4.20-6.10); RED CELL DISTRIBUTION WIDTH 16.1 % (11.6-13.7); WHITE BLOOD COUNT (AUTO) 15.9 K/uL (4.8-10.8)
[2020-03-25 06:48] LABS: ALBUMIN 1.7 g/dL (3.4-5.0); ANION GAP 7.4 (8-16); ASPARTATE AMINOTRANSFERASE 23 U/L (15-37); CARBON DIOXIDE 30.7 mmol/L (21-32); CHLORIDE 97 mmol/L (98-107); CREATININE 0.6 mg/dL (0.6-1.3); GLUCOSE 116 mg/dL (74-106); POTASSIUM 4.1 mmol/L (3.5-5.1); SODIUM SERUM 131 mmol/L (136-145); TOTAL BILIRUBIN 0.4 mg/dL (0.0-1.0); UREA NITROGEN, BLOOD 17 mg/dL (7-18)
[2020-03-25] MEDS: ALBUTEROL 0.083% 2.5 MG/3 ML NEBU INH SCH ×4 (07:49→19:00)
[2020-03-25] MEDS: NACL 0.45% 1,000 ML IV SCH (08:06)
[2020-03-25] MEDS: ASCORBIC ACID 500 MG/5 ML ORASYR GT SCH (08:54)
[2020-03-25] MEDS: ZINC SULF 220 MG CAP PO SCH (08:54)
[2020-03-25] MEDS: PANTOPRAZOLE 40 MG INJ VIAL IVP SCH ×2 (08:54→20:21)
[2020-03-25] MEDS: MIDAZOLAM MDV 50 MG in NACL 0.9% 40 ML IV PRN (10:03)
[2020-03-25] MEDS ORDERED: ACETAMINOPHEN 325 MG TAB ONE (21:28)
[2020-03-25] MEDS: ACETAMINOPHEN 325 MG TAB PO PRN (21:30)
[2020-03-26] VITALS (66 sets, daily range): BP systolic 88–155; BP diastolic 44–147
[2020-03-26] MEDS: MIDAZOLAM MDV 50 MG in NACL 0.9% 40 ML IV PRN ×2 (00:48→16:35)
[2020-03-26] MEDS: Z-GUARD PASTE TP SCH ×2 (01:00→13:00)
[2020-03-26] MEDS: FOAM DRESSING TP SCH ×2 (01:00→13:00)
[2020-03-26] MEDS: NACL 0.9% IV PRN ×2 (04:34→16:34)
[2020-03-26] MEDS: FENTANYL CITRATE IV PRN ×2 (04:34→16:34)
[2020-03-26] MEDS: PIPERACILLIN/TAZOBACTAM 3.375 GM in DEXTROSE 5% 50 ML IV SCH ×5 (06:02→17:44)
[2020-03-26 06:43] LABS: HEMATOCRIT 30.6 % (36-52); HEMOGLOBIN 9.4 g/dL (12.0-18.0); MEAN CORPUSCULAR HEMOGLOBIN 30 pg (27-31); MEAN CORPUSCULAR HGB CONC 31 g/dL (33-37); MEAN CORPUSCULAR VOLUME 96.2 fL (80-94); PLATELET COUNT (AUTO) 387 K/uL (140-450); RED BLOOD CELL COUNT(AUTO) 3.18 MIL/uL (4.20-6.10); RED CELL DISTRIBUTION WIDTH 16.5 % (11.6-13.7)
[2020-03-26 07:52] LABS: ALBUMIN 1.6 g/dL (3.4-5.0); ANION GAP 9.4 (8-16); ASPARTATE AMINOTRANSFERASE 39 U/L (15-37); CARBON DIOXIDE 29.9 mmol/L (21-32); CHLORIDE 97 mmol/L (98-107); CREATININE 0.7 mg/dL (0.6-1.3); GLUCOSE 154 mg/dL (74-106); POTASSIUM 4.3 mmol/L (3.5-5.1); SODIUM SERUM 132 mmol/L (136-145); TOTAL BILIRUBIN 0.3 mg/dL (0.0-1.0); UREA NITROGEN, BLOOD 21 mg/dL (7-18)
[2020-03-26] MEDS: NACL 0.45% 1,000 ML IV SCH (08:06)
[2020-03-26 09:07] LABS: LYMPHOCYTES % (MANUAL) 4 % (20-46); WHITE BLOOD COUNT (AUTO) 29.3 K/uL (4.8-10.8)
[2020-03-26 09:08] LABS: MONOCYTES % (MANUAL) 3 % (5-12)
[2020-03-26] MEDS: ASCORBIC ACID 500 MG/5 ML ORASYR GT SCH (09:27)
[2020-03-26] MEDS: PANTOPRAZOLE 40 MG INJ VIAL IVP SCH ×2 (09:28→21:09)
[2020-03-26] MEDS: ZINC SULF 220 MG CAP PO SCH (09:28)
[2020-03-26] MEDS: ALBUTEROL 0.083% 2.5 MG/3 ML NEBU INH SCH (19:00)
[2020-03-27] VITALS (101 sets, daily range): BP systolic 108–172; BP diastolic 52–90
[2020-03-27] MEDS: PIPERACILLIN/TAZOBACTAM 3.375 GM in DEXTROSE 5% 50 ML IV SCH (00:30)
[2020-03-27] MEDS: ALBUTEROL 0.083% 2.5 MG/3 ML NEBU INH SCH ×4 (01:00→19:18)
[2020-03-27] MEDS: FOAM DRESSING TP SCH ×2 (04:00→13:14)
[2020-03-27] MEDS: Z-GUARD PASTE TP SCH ×2 (04:00→13:13)
[2020-03-27 06:18] LABS: BASOPHILS % (AUTO) 0.2 % (0.0-2.0); EOSINOPHILS # (AUTO) 0.2 K/uL (0-0.4); EOSINOPHILS % (AUTO) 1.3 % (0.0-4.0); HEMATOCRIT 28.5 % (36-52); HEMOGLOBIN 8.8 g/dL (12.0-18.0); LYMPHOCYTES # (AUTO) 0.8 K/uL (2.0-11.5); LYMPHOCYTES % (AUTO) 4.9 % (20.5-51.1); MEAN CORPUSCULAR HEMOGLOBIN 29 pg (27-31); MEAN CORPUSCULAR HGB CONC 31 g/dL (33-37); MEAN CORPUSCULAR VOLUME 95.1 fL (80-94); MONOCYTES # (AUTO) 0.7 K/uL (0.8-1.0); MONOCYTES % (AUTO) 4.6 % (1.7-9.3); NEUTROPHILS # (AUTO) 14.2 K/uL (1.8-7.7); PLATELET COUNT (AUTO) 414 K/uL (140-450); RED CELL DISTRIBUTION WIDTH 16.3 % (11.6-13.7)
[2020-03-27 06:28] LABS: ALBUMIN 1.5 g/dL (3.4-5.0); ANION GAP 3.2 (8-16); ASPARTATE AMINOTRANSFERASE 28 U/L (15-37); CHLORIDE 100 mmol/L (98-107); CREATININE 0.5 mg/dL (0.6-1.3); GLUCOSE 120 mg/dL (74-106); POTASSIUM 4.2 mmol/L (3.5-5.1); SODIUM SERUM 134 mmol/L (136-145); TOTAL BILIRUBIN 0.3 mg/dL (0.0-1.0); UREA NITROGEN, BLOOD 16 mg/dL (7-18)
[2020-03-27] MEDS: FENTANYL CITRATE IV PRN (07:51)
[2020-03-27] MEDS: NACL 0.9% IV PRN (07:51)
[2020-03-27] MEDS: NACL 0.45% 1,000 ML IV SCH (08:06)
[2020-03-27] MEDS: ASCORBIC ACID 500 MG/5 ML ORASYR GT SCH (09:21)
[2020-03-27] MEDS: PANTOPRAZOLE 40 MG INJ VIAL IVP SCH ×2 (09:21→20:46)
[2020-03-27] MEDS: ZINC SULF 220 MG CAP PO SCH (09:21)
[2020-03-28] VITALS (60 sets, daily range): BP systolic 102–167; BP diastolic 50–108
[2020-03-28] MEDS: NACL 0.9% IV PRN ×2 (00:40→15:15)
[2020-03-28] MEDS: FENTANYL CITRATE IV PRN ×2 (00:40→15:15)
[2020-03-28] MEDS: FOAM DRESSING TP SCH ×2 (01:00→13:00)
[2020-03-28] MEDS: Z-GUARD PASTE TP SCH ×2 (01:00→13:00)
[2020-03-28] MEDS: ALBUTEROL 0.083% 2.5 MG/3 ML NEBU INH SCH ×4 (01:50→19:39)
[2020-03-28 08:46] LABS: ALBUMIN 1.5 g/dL (3.4-5.0); ANION GAP 5.2 (8-16); ASPARTATE AMINOTRANSFERASE 49 U/L (15-37); CARBON DIOXIDE 37.5 mmol/L (21-32); CHLORIDE 100 mmol/L (98-107); CREATININE 0.6 mg/dL (0.6-1.3); GLUCOSE 129 mg/dL (74-106); POTASSIUM 4.7 mmol/L (3.5-5.1); SODIUM SERUM 138 mmol/L (136-145); TOTAL BILIRUBIN 0.2 mg/dL (0.0-1.0); UREA NITROGEN, BLOOD 14 mg/dL (7-18)
[2020-03-28] MEDS: ASCORBIC ACID 500 MG/5 ML ORASYR GT SCH (08:51)
[2020-03-28] MEDS: ZINC SULF 220 MG CAP PO SCH (08:52)
[2020-03-28] MEDS: PANTOPRAZOLE 40 MG INJ VIAL IVP SCH ×2 (08:52→21:41)
[2020-03-28] MEDS: NACL 0.45% 1,000 ML IV SCH (09:02)
[2020-03-28] MEDS ORDERED: FUROSEMIDE 40 MG/4 ML VIAL IVP SCH (11:00)
[2020-03-28] MEDS: ACETAMINOPHEN 325 MG TAB PO PRN (12:46)
[2020-03-28] MEDS: MIDAZOLAM MDV 50 MG in NACL 0.9% 40 ML IV PRN (15:17)
[2020-03-29] VITALS (105 sets, daily range): BP systolic 91–157; BP diastolic 53–88
[2020-03-29] MEDS: FOAM DRESSING TP SCH ×2 (01:00→13:49)
[2020-03-29] MEDS: Z-GUARD PASTE TP SCH ×2 (01:50→13:49)
[2020-03-29] MEDS: ALBUTEROL 0.083% 2.5 MG/3 ML NEBU INH SCH ×4 (02:07→19:34)
[2020-03-29 05:59] LABS: BASOPHILS # (AUTO) 0.1 K/uL (0.00-0.22); BASOPHILS % (AUTO) 0.5 % (0.0-2.0); EOSINOPHILS # (AUTO) 0.1 K/uL (0-0.4); EOSINOPHILS % (AUTO) 1.2 % (0.0-4.0); HEMATOCRIT 30.1 % (36-52); HEMOGLOBIN 9.3 g/dL (12.0-18.0); LYMPHOCYTES # (AUTO) 0.5 K/uL (2.0-11.5); LYMPHOCYTES % (AUTO) 4.5 % (20.5-51.1); MEAN CORPUSCULAR HEMOGLOBIN 30 pg (27-31); MEAN CORPUSCULAR HGB CONC 31 g/dL (33-37); MEAN CORPUSCULAR VOLUME 95.6 fL (80-94); MONOCYTES # (AUTO) 0.7 K/uL (0.8-1.0); NEUTROPHILS # (AUTO) 10.7 K/uL (1.8-7.7); NEUTROPHILS % (AUTO) 87.8 % (42.2-75.2); PLATELET COUNT (AUTO) 405 K/uL (140-450); RED BLOOD CELL COUNT(AUTO) 3.15 MIL/uL (4.20-6.10); RED CELL DISTRIBUTION WIDTH 15.6 % (11.6-13.7); WHITE BLOOD COUNT (AUTO) 12.2 K/uL (4.8-10.8)
[2020-03-29] MEDS: FENTANYL CITRATE IV PRN ×2 (06:00→20:58)
[2020-03-29] MEDS: NACL 0.9% IV PRN ×2 (06:00→20:58)
[2020-03-29 06:25] LABS: ALBUMIN 1.6 g/dL (3.4-5.0); ASPARTATE AMINOTRANSFERASE 30 U/L (15-37); CHLORIDE 100 mmol/L (98-107); CREATININE 0.4 mg/dL (0.6-1.3); GLUCOSE 145 mg/dL (74-106); POTASSIUM 4.9 mmol/L (3.5-5.1); SODIUM SERUM 141 mmol/L (136-145); TOTAL BILIRUBIN 0.2 mg/dL (0.0-1.0); UREA NITROGEN, BLOOD 12 mg/dL (7-18)
[2020-03-29 08:43] LABS: ANION GAP 5.9 (8-16)
[2020-03-29] MEDS: ASCORBIC ACID 500 MG/5 ML ORASYR GT SCH (09:35)
[2020-03-29] MEDS: PANTOPRAZOLE 40 MG INJ VIAL IVP SCH ×2 (09:35→20:58)
[2020-03-29] MEDS: ZINC SULF 220 MG CAP PO SCH (09:36)
[2020-03-29] MEDS: acetaZOLAMIDE sodium 500 MG VIAL IVP SCH (10:53)
[2020-03-29] MEDS: MIDAZOLAM MDV 50 MG in NACL 0.9% 40 ML IV PRN (17:24)
[2020-03-29] MEDS: LEVOFLOXACIN 500 MG/D5W PREMIX 100 ML IV SCH (20:58)
[2020-03-30] VITALS (71 sets, daily range): BP systolic 89–144; BP diastolic 54–88
[2020-03-30] MEDS: ALBUTEROL 0.083% 2.5 MG/3 ML NEBU INH SCH ×4 (00:40→19:39)
[2020-03-30] MEDS: FOAM DRESSING TP SCH ×2 (03:28→12:38)
[2020-03-30] MEDS: Z-GUARD PASTE TP SCH ×2 (03:28→12:38)
[2020-03-30 05:48] LABS: BASOPHILS # (AUTO) 0.1 K/uL (0.00-0.22); BASOPHILS % (AUTO) 0.5 % (0.0-2.0); EOSINOPHILS # (AUTO) 0.1 K/uL (0-0.4); HEMATOCRIT 29.2 % (36-52); HEMOGLOBIN 8.9 g/dL (12.0-18.0); LYMPHOCYTES # (AUTO) 1.4 K/uL (2.0-11.5); LYMPHOCYTES % (AUTO) 11.3 % (20.5-51.1); MEAN CORPUSCULAR HEMOGLOBIN 29 pg (27-31); MEAN CORPUSCULAR HGB CONC 31 g/dL (33-37); MEAN CORPUSCULAR VOLUME 96.2 fL (80-94); MONOCYTES % (AUTO) 7.7 % (1.7-9.3); NEUTROPHILS % (AUTO) 79.5 % (42.2-75.2); PLATELET COUNT (AUTO) 353 K/uL (140-450); RED BLOOD CELL COUNT(AUTO) 3.03 MIL/uL (4.20-6.10); RED CELL DISTRIBUTION WIDTH 15.7 % (11.6-13.7); WHITE BLOOD COUNT (AUTO) 12.6 K/uL (4.8-10.8)
[2020-03-30 07:36] LABS: ALBUMIN 1.5 g/dL (3.4-5.0); ANION GAP 4.1 (8-16); ASPARTATE AMINOTRANSFERASE 26 U/L (15-37); CARBON DIOXIDE 39.4 mmol/L (21-32); CHLORIDE 102 mmol/L (98-107); CREATININE 0.5 mg/dL (0.6-1.3); GLUCOSE 146 mg/dL (74-106); POTASSIUM 4.5 mmol/L (3.5-5.1); SODIUM SERUM 141 mmol/L (136-145); TOTAL BILIRUBIN 0.2 mg/dL (0.0-1.0); UREA NITROGEN, BLOOD 14 mg/dL (7-18)
[2020-03-30] MEDS: ASCORBIC ACID 500 MG/5 ML ORASYR GT SCH (09:20)
[2020-03-30] MEDS: PANTOPRAZOLE 40 MG INJ VIAL IVP SCH ×2 (09:20→21:01)
[2020-03-30] MEDS: ZINC SULF 220 MG CAP PO SCH (09:20)
[2020-03-30] MEDS: acetaZOLAMIDE sodium 500 MG VIAL IVP SCH (10:52)
[2020-03-30] MEDS: NACL 0.9% IV PRN (10:56)
[2020-03-30] MEDS: FENTANYL CITRATE IV PRN (10:56)
[2020-03-30] MEDS: MIDAZOLAM MDV 50 MG in NACL 0.9% 40 ML IV PRN (10:58)
[2020-03-30] MEDS: LEVOFLOXACIN 500 MG/D5W PREMIX 100 ML IV SCH (20:42)
[2020-03-31] VITALS (70 sets, daily range): BP systolic 100–159; BP diastolic 51–85
[2020-03-31] MEDS: FOAM DRESSING TP SCH ×2 (01:00→12:26)
[2020-03-31] MEDS: Z-GUARD PASTE TP SCH ×2 (01:00→12:26)
[2020-03-31] MEDS: ALBUTEROL 0.083% 2.5 MG/3 ML NEBU INH SCH ×4 (01:41→19:00)
[2020-03-31 06:31] LABS: ALBUMIN 1.5 g/dL (3.4-5.0); ANION GAP 3.6 (8-16); ASPARTATE AMINOTRANSFERASE 67 U/L (15-37); CHLORIDE 103 mmol/L (98-107); CREATININE 0.5 mg/dL (0.6-1.3); GLUCOSE 133 mg/dL (74-106); POTASSIUM 4.6 mmol/L (3.5-5.1); SODIUM SERUM 140 mmol/L (136-145); TOTAL BILIRUBIN 0.2 mg/dL (0.0-1.0); UREA NITROGEN, BLOOD 16 mg/dL (7-18)
[2020-03-31 06:38] LABS: BASOPHILS % (AUTO) 0.5 % (0.0-2.0); EOSINOPHILS # (AUTO) 0.3 K/uL (0-0.4); EOSINOPHILS % (AUTO) 2.9 % (0.0-4.0); HEMATOCRIT 28.1 % (36-52); HEMOGLOBIN 8.9 g/dL (12.0-18.0); LYMPHOCYTES # (AUTO) 1.4 K/uL (2.0-11.5); MEAN CORPUSCULAR HEMOGLOBIN 31 pg (27-31); MEAN CORPUSCULAR HGB CONC 32 g/dL (33-37); MEAN CORPUSCULAR VOLUME 96.3 fL (80-94); MONOCYTES # (AUTO) 0.8 K/uL (0.8-1.0); MONOCYTES % (AUTO) 8.2 % (1.7-9.3); NEUTROPHILS # (AUTO) 6.8 K/uL (1.8-7.7); NEUTROPHILS % (AUTO) 73.4 % (42.2-75.2); PLATELET COUNT (AUTO) 386 K/uL (140-450); RED BLOOD CELL COUNT(AUTO) 2.92 MIL/uL (4.20-6.10); RED CELL DISTRIBUTION WIDTH 15.8 % (11.6-13.7); WHITE BLOOD COUNT (AUTO) 9.3 K/uL (4.8-10.8)
[2020-03-31] MEDS: ASCORBIC ACID 500 MG/5 ML ORASYR GT SCH (09:49)
[2020-03-31] MEDS: PANTOPRAZOLE 40 MG INJ VIAL IVP SCH ×2 (09:49→20:00)
[2020-03-31] MEDS: acetaZOLAMIDE sodium 500 MG VIAL IVP SCH (09:52)
[2020-03-31] MEDS: ZINC SULF 220 MG CAP PO SCH (09:52)
[2020-03-31] MEDS: LEVOFLOXACIN 500 MG/D5W PREMIX 100 ML IV SCH (20:01)
[2020-04-01] VITALS (104 sets, daily range): BP systolic 91–165; BP diastolic 52–118
[2020-04-01] MEDS: ALBUTEROL 0.083% 2.5 MG/3 ML NEBU INH SCH ×4 (00:18→19:17)
[2020-04-01] MEDS: FOAM DRESSING TP SCH ×3 (01:00→23:49)
[2020-04-01] MEDS: Z-GUARD PASTE TP SCH ×2 (01:00→13:04)
[2020-04-01 06:11] LABS: BASOPHILS # (AUTO) 0.1 K/uL (0.00-0.22); BASOPHILS % (AUTO) 0.5 % (0.0-2.0); EOSINOPHILS # (AUTO) 0.3 K/uL (0-0.4); EOSINOPHILS % (AUTO) 2.8 % (0.0-4.0); HEMATOCRIT 27.9 % (36-52); HEMOGLOBIN 8.6 g/dL (12.0-18.0); LYMPHOCYTES # (AUTO) 1.7 K/uL (2.0-11.5); MEAN CORPUSCULAR HEMOGLOBIN 29 pg (27-31); MEAN CORPUSCULAR HGB CONC 31 g/dL (33-37); MEAN CORPUSCULAR VOLUME 94.8 fL (80-94); MONOCYTES # (AUTO) 1.1 K/uL (0.8-1.0); NEUTROPHILS # (AUTO) 8.8 K/uL (1.8-7.7); PLATELET COUNT (AUTO) 383 K/uL (140-450); RED BLOOD CELL COUNT(AUTO) 2.94 MIL/uL (4.20-6.10)
[2020-04-01 06:55] LABS: LYMPHOCYTES % (AUTO) 14.6 % (20.5-51.1); MONOCYTES % (AUTO) 9.1 % (1.7-9.3)
[2020-04-01 06:58] LABS: ALBUMIN 1.5 g/dL (3.4-5.0); ANION GAP 4.3 (8-16); ASPARTATE AMINOTRANSFERASE 64 U/L (15-37); CARBON DIOXIDE 36.2 mmol/L (21-32); CHLORIDE 103 mmol/L (98-107); CREATININE 0.5 mg/dL (0.6-1.3); GLUCOSE 139 mg/dL (74-106); POTASSIUM 4.5 mmol/L (3.5-5.1); SODIUM SERUM 139 mmol/L (136-145); TOTAL BILIRUBIN 0.2 mg/dL (0.0-1.0); UREA NITROGEN, BLOOD 14 mg/dL (7-18)
[2020-04-01] MEDS: ZINC SULF 220 MG CAP PO SCH (08:34)
[2020-04-01] MEDS: PANTOPRAZOLE 40 MG INJ VIAL IVP SCH ×2 (08:34→20:32)
[2020-04-01] MEDS: ASCORBIC ACID 500 MG/5 ML ORASYR GT SCH (08:34)
[2020-04-01] MEDS: FENTANYL CITRATE IV PRN (11:19)
[2020-04-01] MEDS: MIDAZOLAM MDV 50 MG in NACL 0.9% 40 ML IV PRN (11:19)
[2020-04-01] MEDS: NACL 0.9% IV PRN (11:19)
[2020-04-01] MEDS: LEVOFLOXACIN 500 MG/D5W PREMIX 100 ML IV SCH (20:32)
[2020-04-02] VITALS (96 sets, daily range): BP systolic 81–163; BP diastolic 45–93
[2020-04-02] MEDS: Z-GUARD PASTE TP SCH ×2 (01:00→14:54)
[2020-04-02] MEDS: ALBUTEROL 0.083% 2.5 MG/3 ML NEBU INH SCH ×4 (01:33→19:00)
[2020-04-02] MEDS: FENTANYL CITRATE IV PRN ×2 (03:53→20:38)
[2020-04-02] MEDS: NACL 0.9% IV PRN ×2 (03:53→20:38)
[2020-04-02 06:36] LABS: ALBUMIN 1.6 g/dL (3.4-5.0); ANION GAP 6.3 (8-16); ASPARTATE AMINOTRANSFERASE 93 U/L (15-37); CARBON DIOXIDE 35.1 mmol/L (21-32); CHLORIDE 102 mmol/L (98-107); CREATININE 0.5 mg/dL (0.6-1.3); GLUCOSE 85 mg/dL (74-106); POTASSIUM 4.4 mmol/L (3.5-5.1); SODIUM SERUM 139 mmol/L (136-145); TOTAL BILIRUBIN 0.3 mg/dL (0.0-1.0); UREA NITROGEN, BLOOD 16 mg/dL (7-18)
[2020-04-02 07:52] LABS: BASOPHILS % (AUTO) 0.3 % (0.0-2.0); EOSINOPHILS # (AUTO) 0.1 K/uL (0-0.4); EOSINOPHILS % (AUTO) 0.8 % (0.0-4.0); HEMATOCRIT 28.2 % (36-52); HEMOGLOBIN 8.9 g/dL (12.0-18.0); LYMPHOCYTES # (AUTO) 2.4 K/uL (2.0-11.5); LYMPHOCYTES % (AUTO) 15.9 % (20.5-51.1); MEAN CORPUSCULAR HEMOGLOBIN 30 pg (27-31); MEAN CORPUSCULAR HGB CONC 31 g/dL (33-37); MEAN CORPUSCULAR VOLUME 94.3 fL (80-94); MONOCYTES # (AUTO) 1.3 K/uL (0.8-1.0); MONOCYTES % (AUTO) 8.9 % (1.7-9.3); NEUTROPHILS # (AUTO) 11.1 K/uL (1.8-7.7); NEUTROPHILS % (AUTO) 74.1 % (42.2-75.2); PLATELET COUNT (AUTO) 371 K/uL (140-450); RED BLOOD CELL COUNT(AUTO) 2.99 MIL/uL (4.20-6.10); RED CELL DISTRIBUTION WIDTH 16.6 % (11.6-13.7)
[2020-04-02] MEDS: ASCORBIC ACID 500 MG/5 ML ORASYR GT SCH (08:12)
[2020-04-02] MEDS: ZINC SULF 220 MG CAP PO SCH (08:12)
[2020-04-02] MEDS: MIDAZOLAM MDV 50 MG in NACL 0.9% 40 ML IV PRN (08:46)
[2020-04-02] MEDS: PANTOPRAZOLE 40 MG INJ VIAL IVP SCH ×2 (09:07→20:30)
[2020-04-02] MEDS ORDERED: LIDOCAINE 1% 500 MG/50 ML VIAL ONE (10:57)
[2020-04-02] MEDS ORDERED: BUPIVACAINE-MPF 0.25% 30 ML VIAL INJ ONE (10:57)
[2020-04-02] MEDS ORDERED: ETOMIDATE 20 MG/10 ML VIAL IVP ONE (12:22)
[2020-04-02] MEDS ORDERED: ROCURONIUM 50 MG/5 ML VIAL IV ONE (12:22)
[2020-04-02] MEDS ORDERED: ONDANSETRON 4 MG/2 ML VIAL ONE (12:22)
[2020-04-02] MEDS ORDERED: DEXAMETHASONE 4 MG/ML VIAL ONE (12:22)
[2020-04-02] MEDS ORDERED: fentaNYL citrate 0.05 MG/ML VIAL ONE (12:22)
[2020-04-02] MEDS ORDERED: SEVOFLURANE 250 ML BTL INH ONE (12:22)
[2020-04-02] MEDS ORDERED: PHENYLEPHRINE 10 MG/ML VIAL ONE (12:22)
[2020-04-02] MEDS: FOAM DRESSING TP SCH (14:54)
[2020-04-02] MEDS: THERAHONEY GEL 42.5 GM TP SCH (14:54)
[2020-04-02] MEDS: LEVOFLOXACIN 500 MG/D5W PREMIX 100 ML IV SCH (20:31)
[2020-04-02] MEDS: ACETAMINOPHEN 325 MG TAB PO PRN (21:15)
[2020-04-03] VITALS (97 sets, daily range): BP systolic 84–168; BP diastolic 56–95
[2020-04-03] MEDS: ALBUTEROL 0.083% 2.5 MG/3 ML NEBU INH SCH ×4 (01:00→19:00)
[2020-04-03] MEDS: FOAM DRESSING TP SCH ×2 (01:50→12:44)
[2020-04-03 05:55] LABS: BASOPHILS # (AUTO) 0.1 K/uL (0.00-0.22); BASOPHILS % (AUTO) 0.4 % (0.0-2.0); EOSINOPHILS # (AUTO) 0.1 K/uL (0-0.4); EOSINOPHILS % (AUTO) 0.8 % (0.0-4.0); HEMATOCRIT 27.7 % (36-52); HEMOGLOBIN 8.6 g/dL (12.0-18.0); LYMPHOCYTES # (AUTO) 2.4 K/uL (2.0-11.5); LYMPHOCYTES % (AUTO) 14.2 % (20.5-51.1); MEAN CORPUSCULAR HEMOGLOBIN 29 pg (27-31); MEAN CORPUSCULAR HGB CONC 31 g/dL (33-37); MEAN CORPUSCULAR VOLUME 94.4 fL (80-94); MONOCYTES # (AUTO) 1.7 K/uL (0.8-1.0); NEUTROPHILS # (AUTO) 12.7 K/uL (1.8-7.7); NEUTROPHILS % (AUTO) 74.6 % (42.2-75.2); PLATELET COUNT (AUTO) 328 K/uL (140-450); RED BLOOD CELL COUNT(AUTO) 2.93 MIL/uL (4.20-6.10); RED CELL DISTRIBUTION WIDTH 16.3 % (11.6-13.7)
[2020-04-03 06:22] LABS: ALBUMIN 1.5 g/dL (3.4-5.0); ANION GAP 8.8 (8-16); ASPARTATE AMINOTRANSFERASE 44 U/L (15-37); CARBON DIOXIDE 33.5 mmol/L (21-32); CHLORIDE 102 mmol/L (98-107); CREATININE 0.6 mg/dL (0.6-1.3); GLUCOSE 130 mg/dL (74-106); POTASSIUM 4.3 mmol/L (3.5-5.1); SODIUM SERUM 140 mmol/L (136-145); TOTAL BILIRUBIN 0.2 mg/dL (0.0-1.0); UREA NITROGEN, BLOOD 19 mg/dL (7-18)
[2020-04-03] MEDS: MIDAZOLAM MDV 50 MG in NACL 0.9% 40 ML IV PRN (06:44)
[2020-04-03] MEDS: ASCORBIC ACID 500 MG/5 ML ORASYR GT SCH (08:38)
[2020-04-03] MEDS: ZINC SULF 220 MG CAP PO SCH (08:38)
[2020-04-03] MEDS: PANTOPRAZOLE 40 MG INJ VIAL IVP SCH ×2 (08:38→20:35)
[2020-04-03] MEDS: FENTANYL CITRATE IV PRN (11:45)
[2020-04-03] MEDS: NACL 0.9% IV PRN (11:45)
[2020-04-03] MEDS: ACETAMINOPHEN 325 MG TAB PO PRN ×2 (12:40→18:50)
[2020-04-03] MEDS: GAUZE TP SCH (12:44)
[2020-04-03] MEDS: THERAHONEY GEL 42.5 GM TP SCH (12:44)
[2020-04-03] MEDS: Z-GUARD PASTE TP SCH (12:45)
[2020-04-03] MEDS: LEVOFLOXACIN 500 MG/D5W PREMIX 100 ML IV SCH (20:35)
[2020-04-04] VITALS (86 sets, daily range): BP systolic 84–187; BP diastolic 56–111
[2020-04-04] MEDS: FOAM DRESSING TP SCH ×2 (01:00→13:56)
[2020-04-04] MEDS: ALBUTEROL 0.083% 2.5 MG/3 ML NEBU INH SCH ×4 (01:00→19:00)
[2020-04-04] MEDS: hydrALAZINE 20 MG/ML VIAL IVP PRN (02:47)
[2020-04-04] MEDS: FENTANYL CITRATE IV PRN ×2 (04:34→18:54)
[2020-04-04] MEDS: NACL 0.9% IV PRN ×2 (04:34→18:54)
[2020-04-04 05:36] LABS: BASOPHILS % (AUTO) 0.1 % (0.0-2.0); EOSINOPHILS % (AUTO) 0.3 % (0.0-4.0); HEMATOCRIT 26.6 % (36-52); HEMOGLOBIN 8.4 g/dL (12.0-18.0); LYMPHOCYTES # (AUTO) 1.1 K/uL (2.0-11.5); LYMPHOCYTES % (AUTO) 6.2 % (20.5-51.1); MEAN CORPUSCULAR HEMOGLOBIN 30 pg (27-31); MEAN CORPUSCULAR HGB CONC 32 g/dL (33-37); MONOCYTES # (AUTO) 1.4 K/uL (0.8-1.0); MONOCYTES % (AUTO) 8.5 % (1.7-9.3); NEUTROPHILS # (AUTO) 14.5 K/uL (1.8-7.7); NEUTROPHILS % (AUTO) 84.9 % (42.2-75.2); PLATELET COUNT (AUTO) 316 K/uL (140-450); RED BLOOD CELL COUNT(AUTO) 2.86 MIL/uL (4.20-6.10); RED CELL DISTRIBUTION WIDTH 16.7 % (11.6-13.7); WHITE BLOOD COUNT (AUTO) 17.1 K/uL (4.8-10.8)
[2020-04-04 06:35] LABS: ALBUMIN 1.6 g/dL (3.4-5.0); ANION GAP 6.5 (8-16); ASPARTATE AMINOTRANSFERASE 47 U/L (15-37); CARBON DIOXIDE 33.5 mmol/L (21-32); CHLORIDE 102 mmol/L (98-107); CREATININE 0.5 mg/dL (0.6-1.3); GLUCOSE 123 mg/dL (74-106); SODIUM SERUM 138 mmol/L (136-145); TOTAL BILIRUBIN 0.3 mg/dL (0.0-1.0); UREA NITROGEN, BLOOD 16 mg/dL (7-18)
[2020-04-04] MEDS: ZINC SULF 220 MG CAP PO SCH (08:27)
[2020-04-04] MEDS: PANTOPRAZOLE 40 MG INJ VIAL IVP SCH ×2 (08:27→21:41)
[2020-04-04] MEDS: ASCORBIC ACID 500 MG/5 ML ORASYR GT SCH (08:27)
[2020-04-04] MEDS: GAUZE TP SCH (13:56)
[2020-04-04] MEDS: THERAHONEY GEL 42.5 GM TP SCH (13:56)
[2020-04-04] MEDS: Z-GUARD PASTE TP SCH (13:57)
[2020-04-04] MEDS: LEVOFLOXACIN 500 MG/D5W PREMIX 100 ML IV SCH (21:41)
[2020-04-05] VITALS (42 sets, daily range): BP systolic 102–164; BP diastolic 48–95
[2020-04-05] MEDS: ALBUTEROL 0.083% 2.5 MG/3 ML NEBU INH SCH ×4 (01:00→19:00)
[2020-04-05 05:40] LABS: BASOPHILS % (AUTO) 0.3 % (0.0-2.0); EOSINOPHILS # (AUTO) 0.2 K/uL (0-0.4); EOSINOPHILS % (AUTO) 1.5 % (0.0-4.0); HEMATOCRIT 25.7 % (36-52); HEMOGLOBIN 8.1 g/dL (12.0-18.0); LYMPHOCYTES # (AUTO) 2.3 K/uL (2.0-11.5); LYMPHOCYTES % (AUTO) 16.4 % (20.5-51.1); MEAN CORPUSCULAR HEMOGLOBIN 29 pg (27-31); MEAN CORPUSCULAR HGB CONC 31 g/dL (33-37); MEAN CORPUSCULAR VOLUME 93.6 fL (80-94); MONOCYTES # (AUTO) 1.5 K/uL (0.8-1.0); MONOCYTES % (AUTO) 10.6 % (1.7-9.3); NEUTROPHILS # (AUTO) 10.2 K/uL (1.8-7.7); NEUTROPHILS % (AUTO) 71.2 % (42.2-75.2); PLATELET COUNT (AUTO) 299 K/uL (140-450); RED BLOOD CELL COUNT(AUTO) 2.75 MIL/uL (4.20-6.10); RED CELL DISTRIBUTION WIDTH 17.3 % (11.6-13.7); WHITE BLOOD COUNT (AUTO) 14.3 K/uL (4.8-10.8)
[2020-04-05 06:55] LABS: ALBUMIN 1.4 g/dL (3.4-5.0); ANION GAP 5.5 (8-16); ASPARTATE AMINOTRANSFERASE 44 U/L (15-37); CARBON DIOXIDE 34.9 mmol/L (21-32); CHLORIDE 103 mmol/L (98-107); CREATININE 0.4 mg/dL (0.6-1.3); GLUCOSE 75 mg/dL (74-106); POTASSIUM 4.4 mmol/L (3.5-5.1); SODIUM SERUM 139 mmol/L (136-145); TOTAL BILIRUBIN 0.2 mg/dL (0.0-1.0); UREA NITROGEN, BLOOD 16 mg/dL (7-18)
[2020-04-05] MEDS: PANTOPRAZOLE 40 MG INJ VIAL IVP SCH ×2 (09:44→21:35)
[2020-04-05] MEDS: ASCORBIC ACID 500 MG/5 ML ORASYR GT SCH (09:44)
[2020-04-05] MEDS: ZINC SULF 220 MG CAP PO SCH (09:44)
[2020-04-05] MEDS: THERAHONEY GEL 42.5 GM TP SCH (13:20)
[2020-04-05] MEDS: GAUZE TP SCH (13:20)
[2020-04-05] MEDS: Z-GUARD PASTE TP SCH (13:21)
[2020-04-05] MEDS: MORPHINE SULFATE 2 MG/ML SYR IVP PRN (16:06)
[2020-04-05] MEDS: LEVOFLOXACIN 500 MG/D5W PREMIX 100 ML IV SCH (21:34)
[2020-04-06] VITALS: BP 160/86
[2020-04-06] MEDS: ALBUTEROL 0.083% 2.5 MG/3 ML NEBU INH SCH ×4 (02:44→19:20)
[2020-04-06] MEDS: MORPHINE SULFATE 2 MG/ML SYR IVP PRN ×2 (02:55→11:21)
[2020-04-06 04:00] VITALS: BP 146/78
[2020-04-06 08:00] VITALS: BP 157/79
[2020-04-06] MEDS: ASCORBIC ACID 500 MG/5 ML ORASYR GT SCH (09:35)
[2020-04-06] MEDS: ZINC SULF 220 MG CAP PO SCH (09:35)
[2020-04-06 12:00] VITALS: BP 155/78
[2020-04-06] MEDS: GAUZE TP SCH (12:45)
[2020-04-06] MEDS: Z-GUARD PASTE TP SCH (12:45)
[2020-04-06] MEDS: THERAHONEY GEL 42.5 GM TP SCH (12:45)
[2020-04-06 14:44] LABS: HEMATOCRIT 25.6 % (36-52); MEAN CORPUSCULAR HEMOGLOBIN 29 pg (27-31); MEAN CORPUSCULAR HGB CONC 31 g/dL (33-37); MEAN CORPUSCULAR VOLUME 91.2 fL (80-94); PLATELET COUNT (AUTO) 309 K/uL (140-450); RED BLOOD CELL COUNT(AUTO) 2.81 MIL/uL (4.20-6.10); RED CELL DISTRIBUTION WIDTH 16.9 % (11.6-13.7); WHITE BLOOD COUNT (AUTO) 21.4 K/uL (4.8-10.8)
[2020-04-06 15:16] LABS: ALBUMIN 1.6 g/dL (3.4-5.0); ASPARTATE AMINOTRANSFERASE 127 U/L (15-37); CARBON DIOXIDE 31.5 mmol/L (21-32); CHLORIDE 104 mmol/L (98-107); CREATININE 0.4 mg/dL (0.6-1.3); GLUCOSE 94 mg/dL (74-106); POTASSIUM 3.5 mmol/L (3.5-5.1); SODIUM SERUM 140 mmol/L (136-145); TOTAL BILIRUBIN 0.4 mg/dL (0.0-1.0); UREA NITROGEN, BLOOD 15 mg/dL (7-18)
[2020-04-06 15:31] LABS: LYMPHOCYTES % (MANUAL) 13 % (20-46); MONOCYTES % (MANUAL) 2 % (5-12)
[2020-04-06 15:32] LABS: PROMYELOCYTES % 1 % (0-0)
[2020-04-06 16:00] VITALS: BP 146/81
[2020-04-06 20:00] VITALS: BP 122/66
[2020-04-06] MEDS: LORazepam 2 MG/ML VIAL IVP PRN (23:23)
[2020-04-07] VITALS (8 sets, daily range): BP systolic 130–150; BP diastolic 72–90
[2020-04-07] MEDS: ALBUTEROL 0.083% 2.5 MG/3 ML NEBU INH SCH ×4 (01:16→20:09)
[2020-04-07] MEDS: ASCORBIC ACID 500 MG/5 ML ORASYR GT SCH (09:00)
[2020-04-07] MEDS: ZINC SULF 220 MG CAP PO SCH (09:01)
[2020-04-07 09:04] LABS: BASOPHILS % (AUTO) 0.2 % (0.0-2.0); EOSINOPHILS # (AUTO) 0.1 K/uL (0-0.4); EOSINOPHILS % (AUTO) 0.4 % (0.0-4.0); HEMATOCRIT 24.7 % (36-52); HEMOGLOBIN 7.8 g/dL (12.0-18.0); LYMPHOCYTES # (AUTO) 1.9 K/uL (2.0-11.5); LYMPHOCYTES % (AUTO) 11.6 % (20.5-51.1); MEAN CORPUSCULAR HEMOGLOBIN 29 pg (27-31); MEAN CORPUSCULAR HGB CONC 32 g/dL (33-37); MEAN CORPUSCULAR VOLUME 91.6 fL (80-94); MONOCYTES # (AUTO) 1.5 K/uL (0.8-1.0); MONOCYTES % (AUTO) 8.7 % (1.7-9.3); NEUTROPHILS # (AUTO) 13.2 K/uL (1.8-7.7); NEUTROPHILS % (AUTO) 79.1 % (42.2-75.2); PLATELET COUNT (AUTO) 306 K/uL (140-450); WHITE BLOOD COUNT (AUTO) 16.7 K/uL (4.8-10.8)
[2020-04-07 09:34] LABS: ALBUMIN 1.6 g/dL (3.4-5.0); ASPARTATE AMINOTRANSFERASE 68 U/L (15-37); CARBON DIOXIDE 28.8 mmol/L (21-32); CHLORIDE 104 mmol/L (98-107); CREATININE 0.5 mg/dL (0.6-1.3); GLUCOSE 135 mg/dL (74-106); POTASSIUM 3.8 mmol/L (3.5-5.1); SODIUM SERUM 139 mmol/L (136-145); TOTAL BILIRUBIN 0.3 mg/dL (0.0-1.0); UREA NITROGEN, BLOOD 17 mg/dL (7-18)
[2020-04-07] MEDS: Z-GUARD PASTE TP SCH (16:00)
[2020-04-07] MEDS: THERAHONEY GEL 42.5 GM TP SCH (16:00)
[2020-04-07] MEDS: GAUZE TP SCH (16:00)
[2020-04-07] MEDS ORDERED: ACETAMINOPHEN 650 MG/20.3 ML UDC GT PRN (18:50)
[2020-04-07] MEDS: LORazepam 2 MG/ML VIAL IVP PRN (22:40)
[2020-04-08] VITALS (8 sets, daily range): BP systolic 124–153; BP diastolic 73–86
[2020-04-08] MEDS: ALBUTEROL 0.083% 2.5 MG/3 ML NEBU INH SCH ×4 (01:07→19:13)
[2020-04-08] MEDS: LORazepam 2 MG/ML VIAL IVP PRN (04:19)
[2020-04-08 07:42] LABS: BASOPHILS # (AUTO) 0.1 K/uL (0.00-0.22); BASOPHILS % (AUTO) 0.4 % (0.0-2.0); EOSINOPHILS # (AUTO) 0.1 K/uL (0-0.4); EOSINOPHILS % (AUTO) 0.6 % (0.0-4.0); HEMATOCRIT 25.2 % (36-52); LYMPHOCYTES % (AUTO) 13.2 % (20.5-51.1); MEAN CORPUSCULAR HEMOGLOBIN 29 pg (27-31); MEAN CORPUSCULAR HGB CONC 32 g/dL (33-37); MEAN CORPUSCULAR VOLUME 92.6 fL (80-94); MONOCYTES # (AUTO) 1.2 K/uL (0.8-1.0); MONOCYTES % (AUTO) 8.1 % (1.7-9.3); NEUTROPHILS # (AUTO) 11.7 K/uL (1.8-7.7); NEUTROPHILS % (AUTO) 77.7 % (42.2-75.2); PLATELET COUNT (AUTO) 327 K/uL (140-450); RED BLOOD CELL COUNT(AUTO) 2.72 MIL/uL (4.20-6.10); RED CELL DISTRIBUTION WIDTH 17.2 % (11.6-13.7)
[2020-04-08 07:59] LABS: ALBUMIN 1.8 g/dL (3.4-5.0); ANION GAP 10.3 (8-16); ASPARTATE AMINOTRANSFERASE 40 U/L (15-37); CARBON DIOXIDE 28.5 mmol/L (21-32); CHLORIDE 106 mmol/L (98-107); CREATININE 0.4 mg/dL (0.6-1.3); GLUCOSE 107 mg/dL (74-106); POTASSIUM 3.8 mmol/L (3.5-5.1); SODIUM SERUM 141 mmol/L (136-145); TOTAL BILIRUBIN 0.3 mg/dL (0.0-1.0); UREA NITROGEN, BLOOD 17 mg/dL (7-18)
[2020-04-08] MEDS: ZINC SULF 220 MG CAP PO SCH (09:13)
[2020-04-08] MEDS: ASCORBIC ACID 500 MG/5 ML ORASYR GT SCH (09:13)
[2020-04-08] MEDS: THERAHONEY GEL 42.5 GM TP SCH (13:00)
[2020-04-08] MEDS: Z-GUARD PASTE TP SCH (13:00)
[2020-04-08] MEDS: GAUZE TP SCH (13:00)
[2020-04-09] VITALS: BP 143/80
[2020-04-09] MEDS: ALBUTEROL 0.083% 2.5 MG/3 ML NEBU INH SCH ×4 (00:53→20:48)
[2020-04-09 04:00] VITALS: BP 148/83
[2020-04-09 08:00] VITALS: BP 133/75
[2020-04-09] MEDS: ASCORBIC ACID 500 MG/5 ML ORASYR GT SCH (08:28)
[2020-04-09] MEDS: ZINC SULF 220 MG CAP PO SCH (08:29)
[2020-04-09 12:00] VITALS: BP 133/78
[2020-04-09] MEDS: THERAHONEY GEL 42.5 GM TP SCH (13:00)
[2020-04-09] MEDS: GAUZE TP SCH (13:00)
[2020-04-09] MEDS: Z-GUARD PASTE TP SCH (13:00)
[2020-04-09 16:00] VITALS: BP 153/77
[2020-04-09 20:00] VITALS: BP 135/76
[2020-04-10] VITALS (7 sets, daily range): BP systolic 130–140; BP diastolic 73–90
[2020-04-10] MEDS: ALBUTEROL 0.083% 2.5 MG/3 ML NEBU INH SCH ×4 (02:52→19:49)
[2020-04-10 06:48] LABS: BASOPHILS # (AUTO) 0.1 K/uL (0.00-0.22); BASOPHILS % (AUTO) 0.4 % (0.0-2.0); EOSINOPHILS # (AUTO) 0.2 K/uL (0-0.4); EOSINOPHILS % (AUTO) 1.3 % (0.0-4.0); HEMATOCRIT 24.4 % (36-52); HEMOGLOBIN 7.8 g/dL (12.0-18.0); LYMPHOCYTES # (AUTO) 1.8 K/uL (2.0-11.5); LYMPHOCYTES % (AUTO) 12.4 % (20.5-51.1); MEAN CORPUSCULAR HEMOGLOBIN 29 pg (27-31); MEAN CORPUSCULAR HGB CONC 32 g/dL (33-37); MEAN CORPUSCULAR VOLUME 91.5 fL (80-94); MONOCYTES # (AUTO) 1.2 K/uL (0.8-1.0); MONOCYTES % (AUTO) 8.1 % (1.7-9.3); NEUTROPHILS # (AUTO) 11.5 K/uL (1.8-7.7); NEUTROPHILS % (AUTO) 77.8 % (42.2-75.2); PLATELET COUNT (AUTO) 326 K/uL (140-450); RED BLOOD CELL COUNT(AUTO) 2.67 MIL/uL (4.20-6.10); RED CELL DISTRIBUTION WIDTH 16.7 % (11.6-13.7); WHITE BLOOD COUNT (AUTO) 14.8 K/uL (4.8-10.8)
[2020-04-10 07:09] LABS: ALBUMIN 1.8 g/dL (3.4-5.0); ANION GAP 8.9 (8-16); ASPARTATE AMINOTRANSFERASE 26 U/L (15-37); CARBON DIOXIDE 29.2 mmol/L (21-32); CHLORIDE 103 mmol/L (98-107); CREATININE 0.4 mg/dL (0.6-1.3); GLUCOSE 132 mg/dL (74-106); POTASSIUM 4.1 mmol/L (3.5-5.1); SODIUM SERUM 137 mmol/L (136-145); TOTAL BILIRUBIN 0.3 mg/dL (0.0-1.0); UREA NITROGEN, BLOOD 16 mg/dL (7-18)
[2020-04-10] MEDS: GAUZE TP SCH (14:05)
[2020-04-10] MEDS: THERAHONEY GEL 42.5 GM TP SCH (14:06)
[2020-04-10] MEDS: Z-GUARD PASTE TP SCH (14:06)
[2020-04-11] VITALS: BP 130/77
[2020-04-11] MEDS: ALBUTEROL 0.083% 2.5 MG/3 ML NEBU INH SCH ×3 (02:35→13:04)
[2020-04-11 04:00] VITALS: BP 138/83
[2020-04-11 08:00] VITALS: BP 143/86
[2020-04-11 10:02] LABS: BASOPHILS % (AUTO) 0.2 % (0.0-2.0); EOSINOPHILS # (AUTO) 0.2 K/uL (0-0.4); EOSINOPHILS % (AUTO) 1.5 % (0.0-4.0); HEMATOCRIT 24.4 % (36-52); HEMOGLOBIN 7.8 g/dL (12.0-18.0); LYMPHOCYTES # (AUTO) 1.4 K/uL (2.0-11.5); LYMPHOCYTES % (AUTO) 11.7 % (20.5-51.1); MEAN CORPUSCULAR HEMOGLOBIN 29 pg (27-31); MEAN CORPUSCULAR HGB CONC 32 g/dL (33-37); MEAN CORPUSCULAR VOLUME 91.2 fL (80-94); MONOCYTES # (AUTO) 0.9 K/uL (0.8-1.0); MONOCYTES % (AUTO) 7.2 % (1.7-9.3); NEUTROPHILS # (AUTO) 9.7 K/uL (1.8-7.7); NEUTROPHILS % (AUTO) 79.4 % (42.2-75.2); PLATELET COUNT (AUTO) 334 K/uL (140-450); RED BLOOD CELL COUNT(AUTO) 2.68 MIL/uL (4.20-6.10); RED CELL DISTRIBUTION WIDTH 16.7 % (11.6-13.7); WHITE BLOOD COUNT (AUTO) 12.2 K/uL (4.8-10.8)
[2020-04-11 12:00] VITALS: BP 141/81
[2020-04-11] MEDS: THERAHONEY GEL 42.5 GM TP SCH (13:00)
[2020-04-11] MEDS: GAUZE TP SCH (13:00)
[2020-04-11] MEDS: Z-GUARD PASTE TP SCH (13:00)
[2020-04-11] MEDS ORDERED: FERR-252 PO (14:27)
[2020-04-11] MEDS ORDERED: FERR220E24 PO (14:27)
[2020-04-12] MEDS ORDERED: LORA-476 IVP (06:57)
[2020-04-12] MEDS ORDERED: MSCON15 IVP (06:57)
[2020-04-12] MEDS ORDERED: PRON INH (06:57)
[2020-04-12] MEDS ORDERED: HYDR-1102 IVP (06:57)
[2020-04-12] MEDS ORDERED: [UNRECOGNIZED DRUG - CODE] PO (06:57)
[2020-04-12] MEDS ORDERED: TYL650S GT (06:57)
[2020-04-12] MEDS ORDERED: ZINC220C28 PO (06:57)
== END 2020-04-11 16:15 | DRG 5 ==
LOC: EEVIPCON 05:25 → MED 05:25 → EEVIPCON 06:51 → MTU 06:51 → MIC 02-26 01:53 → MTU 04-05 19:30
PROVIDERS: ADMIT Internal Medicine Pulmonary Disease; ATTEND Internal Medicine Pulmonary Disease
PROC: 0BH17EZ Insertion of Endotracheal Airway into Trachea, Via Natural or Artificial Opening (ICD-10-PCS; 2020-02-24)
PROC: 5A1935Z Respiratory Ventilation, Less than 24 Consecutive Hours (ICD-10-PCS; 2020-02-24)
PROC: 5A1955Z Respiratory Ventilation, Greater than 96 Consecutive Hours (ICD-10-PCS; principal; 2020-02-25)
PROC: XW13325 Transfusion of Convalescent Plasma (Nonautologous) into Peripheral Vein, Percutaneous Approach, New Technology Group 5 (ICD-10-PCS; 2020-03-03)
PROC: 0W9B00Z Drainage of Left Pleural Cavity with Drainage Device, Open Approach (ICD-10-PCS; 2020-03-07)
PROC: 05HM33Z Insertion of Infusion Device into Right Internal Jugular Vein, Percutaneous Approach (ICD-10-PCS; 2020-03-11)
PROC: 30233N1 Transfusion of Nonautologous Red Blood Cells into Peripheral Vein, Percutaneous Approach (ICD-10-PCS; 2020-03-16)
PROC: 0B110F4 Bypass Trachea to Cutaneous with Tracheostomy Device, Open Approach (ICD-10-PCS; 2020-04-02)
PROC: 0DH63UZ Insertion of Feeding Device into Stomach, Percutaneous Approach (ICD-10-PCS; 2020-04-02)
DX: A41.89 Other specified sepsis (principal); U07.1 COVID-19; J15.6 Pneumonia due to other Gram-negative bacteria; J93.0 Spontaneous tension pneumothorax; J12.89 Other viral pneumonia; J96.01 Acute respiratory failure with hypoxia; Y95 Nosocomial condition; L89.90 Pressure ulcer of unspecified site, unspecified stage; N40.0 Benign prostatic hyperplasia without lower urinary tract symptoms; D63.8 Anemia in other chronic diseases classified elsewhere; N18.9 Chronic kidney disease, unspecified; K76.0 Fatty (change of) liver, not elsewhere classified; J93.82 Other air leak; R13.10 Dysphagia, unspecified; I21.A1 Myocardial infarction type 2; I12.9 Hypertensive chronic kidney disease with stage 1 through stage 4 chronic kidney disease, or unspecified chronic kidney disease; G93.40 Encephalopathy, unspecified; D64.9 Anemia, unspecified; R94.5 Abnormal results of liver function studies; Z79.899 Other long term (current) drug therapy; Z86.73 Personal history of transient ischemic attack (TIA), and cerebral infarction without residual deficits
CPT/HCPCS: 31500; 36415; 36600; 70450; 71045; 74018; 76700; 80048; 80053; 80202; 81003; 82272; 82550; 82607; 82728; 82746; 82803; 82948; 83540; 83605; 83615; 83735; 83880; 84484; 85018; 85025; 85045; 85379; 85384; 85610; 85730; 86140; 86886; 86900; 86901; 86920; 87040; 87070; 87081; 87086; 87186; 87205; 87420; 87804; 89220; 93005; 94002; 94003; 94640; 96365; 96366; 96375; 99291; A4330; C9113; J0330; J0360; J0456; J0692; J0696; J1100; J1120; J1200; J1265; J1450; J1650; J1940; J1956; J2001; J2060; J2250; J2270; J2370; J2405; J2543; J2704; J3010; J3370; J3480; J3490; J7030; J7060; J7613; J7644; P9016; P9017; P9046; Q0092; U0003-CS